=== PATIENT | female | born 1940 | race Caucasian/White ===

== ENCOUNTER 2018-06-30 23:55 | Inpatient (IN) | payer MEDICARE ==
[2018-07-01 00:50] LABS: Bilirubin Negative (Negative); Blood, Urine Negative (Negative); Clarity TURBID (Clear); Glucose, Urine (Dipstick) 250 mg/dL (Negative); Leukocyte Small (Negative); Nitrite Negative (Negative); Protein, Urine (Dipstick) 300 mg/dL (Neg-Trace); Specific Gravity, Urine 1.014 (1.002-1.036); Urobilinogen 0.2 mg/dL (0.2-1.0); pH, Urine 5.5 (5.0-9.0)
[2018-07-01 00:52] LABS: Bacteria/HPF 4+ HPF (None Seen); Pathc Cast-AUWi Flag 1.06 (0-2.49); RBC/HPF 0-3 HPF (0-3)
[2018-07-01 00:55] LABS: Hyaline Casts/LPF 0-3 HYALINE CAST LPF (0-3 Hyaline); Oval Fat Bodies/HPF None Seen HPF (None Seen); Sperm/HPF None Seen HPF (None Seen); Transitional Epithelial NONE SEEN HPF (0-3); Trichomonas/HPF None Seen HPF (None Seen); Yeast-All Forms None Seen HPF (None Seen)
[2018-07-01 00:59] LABS: Band 5 % (5-11); Eosinophils 3 % (0-10); Hemoglobin 10.9 g/dL (12.0-16.0); Lymphocytes 14 % (21-51); MDiff Complete? YES; Mean Corpuscular HGB CONC 33.1 g/dL (32.0-36.0); Mean Corpuscular Hemoglobin 28.3 pg (27.0-31.0); Mean Corpuscular Volume 85.4 fL (78.0-98.0); Mean Platelet Volume 6.6 fL (7.4-10.4); Monocytes 7 % (0-10); Neutrophil 71 % (42-75); PLT Morphology Comment Appears Increased; Platelet Count 441 thou/uL (130-400); RBC Distribution Width 12.5 % (11.5-14.5); Red Blood Cell (RBC) Count 3.85 mill/uL (4.20-5.40); White Blood Cell (WBC) Count 22.4 thou/uL (4.8-10.8)
[2018-07-01] MEDS ORDERED: cefTRIAXone\\ROCEPHIN 1 GM VIAL ONE (01:01)
[2018-07-01 01:03] LABS: ALT (SGPT) 29 U/L (8-55); AST (SGOT) 25 U/L (5-34); Albumin 3.1 g/dL (3.4-4.8); Alkaline Phosphatase 105 U/L (40-150); Anion Gap 13 mmol/L (10-20); BUN (Urea Nitrogen) 18 mg/dL (9.8-20.1); Bilirubin, Total 0.6 mg/dL (0.2-1.2); CK (CPK) 67 U/L (29-168); Calc. Creatinine Clearance 0 mL/min (70-130); Calcium 9.4 mg/dL (7.8-10.44); Carbon Dioxide 24 mmol/L (23-31); Chloride 91 mmol/L (98-107); Estimated GFR-MDRD 51; Globulin 4.3 g/dL (2.4-3.5); Glucose 164 mg/dL (83-110); Potassium 4.5 mmol/L (3.5-5.1); Protein, Total 7.4 g/dL (6.0-8.3); Sodium 123 mmol/L (136-145)
[2018-07-01 01:11] LABS: CKMB 2.2 ng/mL (0-6.6); Troponin I Less than 0.010 ng/mL (< 0.028)
[2018-07-01] MEDS ORDERED: Nitrofurantoin Monohyd/M-Cryst 100 MG CAP PO SCH (01:15)
[2018-07-01 03:10] VITALS: BMI 25.4
--- NOTE | 2018-07-01 08:09 | CT ---
PRELIMINARY REPORT/[facility]/EMERGENTY AFTER-HOURS PROCEDURE CT Head Without Intravenous Contrast EXAM DATE/TIME: 07/01/2018 12:39 AM CLINICAL HISTORY: 77 years old, female; Signs and symptoms; Altered mental status/memory loss; Patient HX: Patient pres ents for evaluation of confusion, patient presents for evaluation of mental status changes TECHNIQUE: Axial computed tomography images of the head/brain without intravenous contrast. COMPARISON: No relevant prior studies available. FINDINGS: Brain: Volume loss and chronic small vessel ischemic change. Mild multifocal encephalomalacia. 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 No brain edema. No intracranial hemorrhage. Ventricles: Normal. No ventriculomegaly. Bones/joints: Normal. No acute fracture. Sinuses: Mucosal thickening and fluid level in the left maxillary sinus are suspicious for sinusitis. Mastoid air cells: Normal as visualized. No mastoid effusion. Soft tissues: Normal. IMPRESSION: 1. Mucosal thickening and fluid level in the left maxillary sinus are suspicious for sinusitis. 2. No acute brain findings. Thank you for allowing us to participate in the care of your patient. Dictated and Authenticated by: Dat Garcia MD 07/01/2018 12:47 AM Central Time ([place] & [place]) FINAL REPORT HEAD CT WITHOUT CONTRAST: HISTORY: Altered mental status. COMPARISON: None. FINDINGS: This report is in agreement with the preliminary report by [facility]. No acute intracranial process. Ther e is hypoattenuation involving the left and right frontal subcortical white matter which is nonspecif ic. Components of associated malacic change are noted. There is malacia in the left subinsular whit e matter. POS: [facility]
--- NOTE | 2018-07-01 08:21 | RAD ---
ONE VIEW PELVIS: HISTORY: Fall. Trauma. Pain. FINDINGS: There is a stent projecting over the aortic bifurcation and right iliac artery. Sacral alae are pres erved. Bony pelvis is intact. Symmetric SI joints and hip joints. Unremarkable single view of the pelvis on this pelvic radiograph. IMPRESSION: No posttraumatic change. POS: [facility]
--- NOTE | 2018-07-01 08:24 | RAD ---
LEFT HIP 2 VIEWS: Date: 07/01/18 HISTORY: Trauma. Pain. FINDINGS: Moderate loss of joint space height. Contour of the femoral head is maintained. No fracture. Vascular calcifications are identified. IMPRESSION: No post-traumatic change. POS: [facility]
[2018-07-01] MEDS ORDERED: Insulin Regular 300 UNITS/3 ML VIAL SC PRN (09:54)
[2018-07-01] MEDS ORDERED: Dextrose 5% in Water 1,000 ML IV PRN (09:54)
[2018-07-01] MEDS ORDERED: Dextrose 50% Abboject 50 ML SYRINGE SLOW IVP PRN (09:54)
[2018-07-01] MEDS: Sodium Chloride 0.9% 1,000 ML IV SCH ×2 (11:03→23:48)
[2018-07-01 11:13] LABS: #Eosinphils 0.1 thou/uL (0.0-0.7); #Lymphocytes 1.3 thou/uL (1.20-3.40); #Monocytes 1.2 thou/uL (0.11-0.59); #Neutrophils 14.6 thou/uL (1.40-6.50); %Basophils 0.1 % (0.0-1.0); %Eosinophils 0.3 % (0.0-10.0); %Lymphocytes 7.7 % (21.0-51.0); %Monocytes 7.2 % (0.0-10.0); %Neutrophils 84.7 % (42.0-75.0); Mean Corpuscular HGB CONC 32.1 g/dL (32.0-36.0); Mean Corpuscular Hemoglobin 28.6 pg (27.0-31.0); Mean Corpuscular Volume 89.1 fL (78.0-98.0); Mean Platelet Volume 6.7 fL (7.4-10.4); Platelet Count 371 thou/uL (130-400); RBC Distribution Width 12.5 % (11.5-14.5); Red Blood Cell (RBC) Count 3.85 mill/uL (4.20-5.40); White Blood Cell (WBC) Count 17.2 thou/uL (4.8-10.8)
[2018-07-01 11:36] LABS: ALT (SGPT) 33 U/L (8-55); AST (SGOT) 38 U/L (5-34); Albumin 2.9 g/dL (3.4-4.8); Alkaline Phosphatase 123 U/L (40-150); Anion Gap 14 mmol/L (10-20); BUN (Urea Nitrogen) 16 mg/dL (9.8-20.1); Bilirubin, Total 0.5 mg/dL (0.2-1.2); Calc. Creatinine Clearance 54 mL/min (70-130); Calcium 8.5 mg/dL (7.8-10.44); Carbon Dioxide 21 mmol/L (23-31); Chloride 96 mmol/L (98-107); Estimated GFR-MDRD 63; Globulin 3.2 g/dL (2.4-3.5); Glucose 243 mg/dL (83-110); Magnesium 1.5 mg/dL (1.6-2.6); Potassium 4.5 mmol/L (3.5-5.1); Protein, Total 6.1 g/dL (6.0-8.3); Sodium 126 mmol/L (136-145)
[2018-07-01 11:53] LABS: Thyroid Stimulating Hormone 4.3079 uIU/mL (0.35-4.94)
[2018-07-01] MEDS ORDERED: Ondansetron PF 4 MG/2 ML Vial IVP PRN (12:09)
[2018-07-01] MEDS ORDERED: Ondansetron ODT 4 MG TAB PO PRN (12:09)
[2018-07-01] MEDS ORDERED: Calcium Carbonate 500 MG ChewTAB PO PRN (12:09)
[2018-07-01] MEDS ORDERED: Insulin Glargine 20 UNITS in Pre-Filled Syringe 1 EACH SC SCH (12:15)
[2018-07-01] MEDS ORDERED: Magnesium 2 GM/50 ML 2 GM in Premix Bag 1 BAG IVPB SCH (12:15)
[2018-07-01] MEDS ORDERED: Propranolol HCl 20 MG TAB PO SCH (12:15)
--- NOTE | 2018-07-01 12:19 | HP ---
DATE OF ADMISSION: 07/01/2018 This is a leftover admit from last night. CHIEF COMPLAINT: Altered mentation. HISTORY OF PRESENT ILLNESS: The patient is a 77-year-old female currently residing at [facility], presented to the emergency room by EMS with altered mentation. Over the last 48 hours, lilly cota has been confused. She also had low grade fever. She has not been eating and drinking well. Over the last few weeks, the patient has been sleeping. Patient has been somnolent most of the time . No chest pain, shortness of breath, palpitations reported. At the time of my evaluation, patient denies any new complaints. Her mentation is somewhat improved. The daughter is at the bedside. No notable vision, blurring of vision, facial asymmetry reported. The patient had a fall 2 days ago without significant injuries. She underwent a hip and pelvis x-ra y done in the emergency room that was negative for acute fractures. CT scan of the brain done in the emergency room was negative for acute findings. Sodium in the emergency room was 123 with urinalysi s showing 7-10 wbc's and 4+ bacteria. She received nitrofurantoin, ceftriaxone and IV fluids in the emergency room. PAST MEDICAL HISTORY: 1. Coronary artery disease. 2. Chronic pain syndrome. 3. Diabetes mellitus type 2. 4. Seizure disorder. 5. Hypertension. 6. Hyperlipidemia. 7. Urinary incontinence. 8. Gastroesophageal reflux disease. 9. Blepharospasm. 10. Left ankle fracture in April, conservatively managed. PAST SURGICAL HISTORY: 1. Appendectomy, hernia surgery. 2. Rectocele repair. 3. Bladder neck suspension. 4. Cataract in her right eye. 5. Lumbar surgery. ALLERGIES: No known drug allergies. CURRENT HOME MEDICATIONS: According to the list sent from [facility]; aspirin 81 mg daily, Lipitor 4 0 mg daily, citalopram 10 mg daily, Plavix 75 mg daily, dexamethasone TobraDex eyedrops daily, flutic asone nasal spray daily, Humalog sliding scale, irbesartan 300 mg daily, Lasix 40 mg daily, Levemir 4 8 units daily, levothyroxine 125 mcg daily, MiraLax as needed, loratadine 10 mg daily, Neurontin 900 mg at bedtime, potassium chloride 40 mEq twice a day, propranolol 20 mg daily and vitamin D3 5000 uni ts daily. SOCIAL HISTORY: Patient currently lives at [facility]. She is under the care of Dr. Rox howell. She is FULL CODE, makes her own decision with the help of her family. No alcohol, tobacco o r drug use reported. FAMILY HISTORY: Heart disease runs among her family. REVIEW OF SYSTEMS: The following complete review of systems was negative, unless otherwise mentioned in the HPI or below: Constitutional: Weight loss or gain, ability to conduct usual activities. Skin: Rash, itching. Eyes: Double vision, pain. ENT/Mouth: Nose bleeding, neck stiffness, pain, tenderness. Cardiovascular: Palpitations, dyspnea on exertion, orthopnea. Respiratory: Shortness of breath, wheezing, cough, hemoptysis, fever or night sweats. Gastrointestinal: Poor appetite, abdominal pain, heartburn, nausea, vomiting, constipation, or diarr hea. Genitourinary: Urgency, frequency, dysuria, nocturia. Musculoskeletal: Pain, swelling. Neurologic/Psychiatric: Anxiety, depression. Allergy/Immunologic: Skin rash, bleeding tendency. PHYSICAL EXAMINATION: VITAL SIGNS: In the emergency room, temperature 98.8, respirations 17, pulse rate of 66, blood press ure 154/64 with O2 saturation 95% on room air. GENERAL: A 77-year-old female in no apparent distress. Mentation slightly improved. HEENT: Head is atraumatic, normocephalic. Sclerae are anicteric. Dry mucous membrane, no oral lesi on. NECK: Supple, no JVD appreciated. No carotid bruit. LUNGS: Clear to auscultation bilaterally, no wheezing, rales or rhonchi. HEART: S1 and S2 present. Regular rate and rhythm. No rubs or gallops appreciated. ABDOMEN: Soft, nontender, bowel sounds present. EXTREMITIES: No edema or calf tenderness. NEUROLOGIC: Grossly nonfocal, moves all four extremities. PSYCHIATRY: Alert, awake, oriented x3. SKIN: Warm and dry. LYMPH NODES: No palpable lymph nodes in the neck. PERIPHERAL VASCULAR: Radial pulses palpable bilaterally. MUSCULOSKELETAL: No joint swelling or tenderness. LABORATORY DATA AND IMAGING DATA: Sodium 123 with lactic acid 1.1, magnesium 1.5. Repeat sodium thi s morning was 126, albumin 3.1. Urinalysis as discussed above. WBC 22.[address] scan of the brain by my review as discussed above. EKG by my review showed sinus rhythm with left axis d eviation and LVH. IMPRESSION: 1. Toxic metabolic encephalopathy, multifactorial. 2. Hypotonic hyponatremia. 3. Sepsis secondary to urinary tract infection. 4. Hypomagnesemia. 5. Mild protein calorie malnutrition. 6. Hypothyroidism. 7. Coronary artery disease on aspirin and Plavix. 8. Essential tremors, followed by Dr. Villalta. 9. Diabetes mellitus type 2. 10. History of seizures. 11. Hypertension. 12. Hyperlipidemia. 13. Chronic pain syndrome. 14. Gastroesophageal reflux disease. 15. Urinary incontinence. PLAN: The patient will be monitored on the medical floor. Most likely etiology for hyponatremia gustavo ears to be dehydration. She is also on Lasix. We can hold diuretics for now. Continue empiric anti biotics. We will get renal ultrasound. Urine cultures have been sent and pending at this time. We will consult Nephrology. Plan of care was discussed with the patient and the family in detail. They stated understanding.
[2018-07-01] MEDS: traMADol HCl 50 MG TAB PO PRN (12:37)
--- NOTE | 2018-07-01 16:40 | ULT ---
ULTRASOUND RETROPERITONEUM COMPLETE: (RENAL) 07/01/18 HISTORY: 77-year-old female with urinary tract infection. Rule out obstructive uropathy. FINDINGS: There is mild dilation of the right renal pelvis and all of the right calyces. This persists after vo iding. There is no dilation of the left renal collecting system. There is a 1.5 cm round parenchymal cyst at the lower pole of the left kidney. The right kidney measures 11.5 x 6 x 6.5 cm. The left kidney measures 10.5 x 4.5 x 6 cm. Bilateral renal parenchymal thickness and parenchymal echogenicity, are normal. Prevoid urinary bladder volume is 215 mL. Postvoid bladder volume is 165 mL. Bilateral ureteral jets are demonstrated in the bladder by color d oppler. IMPRESSION: 1. Mild right hydronephrosis. 2. Poor micturition, with significant postvoid residua. MONISHA Lawler POS: [facility]
[2018-07-01 19:32] LABS: Potassium 4.9 mmol/L (3.5-5.1)
[2018-07-01 19:42] LABS: Sodium 121 mmol/L (136-145)
[2018-07-01] MEDS: Amlodipine 5 MG TAB PO SCH (20:07)
[2018-07-01] MEDS: cefTRIAXone\\ROCEPHIN 1 GM in Sodium Chloride 0.9% 100 ML IVPB SCH (20:08)
[2018-07-01] MEDS: Famotidine 20 MG TAB PO SCH (20:10)
[2018-07-01] MEDS: Gabapentin 300 MG CAP PO SCH (20:10)
[2018-07-01] MEDS: Acetaminophen 325 MG TAB PO PRN (20:11)
[2018-07-01] MEDS: Heparin 5,000 UNITS/ML VIAL SC SCH (20:11)
[2018-07-01] MEDS: Insulin Regular 300 UNITS/3 ML VIAL SC PRN (20:12)
[2018-07-02 04:39] LABS: #Eosinphils 0.2 thou/uL (0.0-0.7); #Lymphocytes 2.1 thou/uL (1.20-3.40); #Monocytes 1.5 thou/uL (0.11-0.59); #Neutrophils 14.7 thou/uL (1.40-6.50); %Basophils 0.1 % (0.0-1.0); %Eosinophils 0.9 % (0.0-10.0); %Lymphocytes 11.3 % (21.0-51.0); %Monocytes 8.3 % (0.0-10.0); %Neutrophils 79.3 % (42.0-75.0); Hemoglobin 11.6 g/dL (12.0-16.0); Mean Corpuscular HGB CONC 31.4 g/dL (32.0-36.0); Mean Corpuscular Hemoglobin 27.1 pg (27.0-31.0); Mean Corpuscular Volume 86.2 fL (78.0-98.0); Mean Platelet Volume 7.5 fL (7.4-10.4); Platelet Count 373 thou/uL (130-400); RBC Distribution Width 12.5 % (11.5-14.5); Red Blood Cell (RBC) Count 4.29 mill/uL (4.20-5.40); White Blood Cell (WBC) Count 18.5 thou/uL (4.8-10.8)
[2018-07-02 04:59] LABS: Anion Gap 10 mmol/L (10-20); BUN (Urea Nitrogen) 14 mg/dL (9.8-20.1); Calc. Creatinine Clearance 62 mL/min (70-130); Calcium 9.2 mg/dL (7.8-10.44); Carbon Dioxide 24 mmol/L (23-31); Chloride 96 mmol/L (98-107); Estimated GFR-MDRD 73; Glucose 110 mg/dL (83-110); Magnesium 1.9 mg/dL (1.6-2.6); Phosphorus 2.6 mg/dL (2.3-4.7); Potassium 3.7 mmol/L (3.5-5.1); Sodium 126 mmol/L (136-145)
[2018-07-02] MEDS: Levothyroxine Sodium 125 MCG TAB PO SCH (05:26)
[2018-07-02] MEDS: traMADol HCl 50 MG TAB PO PRN (07:54)
[2018-07-02] MEDS: Amlodipine 5 MG TAB PO SCH ×2 (07:55→20:13)
[2018-07-02] MEDS: Heparin 5,000 UNITS/ML VIAL SC SCH ×2 (07:55→20:13)
[2018-07-02] MEDS: Famotidine 20 MG TAB PO SCH ×2 (07:56→20:13)
[2018-07-02] MEDS: Atorvastatin Calcium 40 MG TAB PO SCH (07:56)
[2018-07-02] MEDS: Aspirin 81 mg Enteric Coated Tablet PO SCH (07:57)
[2018-07-02] MEDS: Clopidogrel Bisulfate 75 MG TAB PO SCH (07:57)
[2018-07-02] MEDS: Tobramycin/Dexamethasone Ophth Oint 3.5 GM TUBE EA EYE SCH (07:58)
[2018-07-02] MEDS ORDERED: Prevnar 13-Val Conj/PF 0.5 ML SYRINGE IM ONE (09:00)
[2018-07-02] MEDS ORDERED: Propranolol HCl 20 MG TAB PO SCH (09:00)
[2018-07-02] MEDS ORDERED: Citalopram 10 MG TAB PO SCH (09:00)
[2018-07-02] MEDS: Insulin Glargine 30 UNITS in Pre-Filled Syringe 1 EACH SC SCH (09:13)
--- NOTE | 2018-07-02 10:18 | PRG ---
DATE OF SERVICE: 07/02/2018 SUBJECTIVE: Patient was seen and examined at bedside and overnight events noted. Patient denies any shortness of breath or chest pain or palpitation. No history of nausea or vomiting or diarrhea or f ever or chills or cramps. OBJECTIVE: GENERAL: This is an elderly female in no apparent distress. VITAL SIGNS: Temperature 98.5, pulse 79, respiratory rate 18, blood pressure 186/64. HEENT: Atraumatic, normocephalic. Oral mucosa is moist. NECK: Supple. CARDIOVASCULAR: S1, S2 heard. Rate and rhythm regular. RESPIRATORY: Clear to auscultation. GASTROINTESTINAL: Abdomen is soft. MUSCULOSKELETAL: No tenderness. No edema. DERMATOLOGIC: No skin rash. NEUROLOGIC: Alert and awake and oriented x3. No focal neurologic deficits. Moving all the extremiti es. PSYCHIATRIC: Mood and affect normal. LABORATORY DATA: Sodium is 126, potassium is 3.7, BUN 14, creatinine 0.7. ASSESSMENT AND PLAN: 1. Hyponatremia, multifactorial. Agree with intravenous fluids for now. We will hold the citalopra m and will monitor. We will recheck sodium in the evening. 2. We will check urine studies. 3. Edema, controlled. 4. Hypertension. Titrate medication. 5. Anemia, mild. 6. Chronic kidney disease, stage 2. 7. We will monitor sodium closely.
[2018-07-02] MEDS ORDERED: Sodium Chloride 0.9% 1,000 ML IV SCH (12:01)
[2018-07-02] MEDS: Insulin Regular 300 UNITS/3 ML VIAL SC PRN ×2 (12:10→22:17)
[2018-07-02] MEDS: Labetalol HCl 100 MG/20 ML VIAL SLOW IVP PRN (12:19)
[2018-07-02 16:15] LABS: Potassium 3.8 mmol/L (3.5-5.1)
[2018-07-02] MEDS ORDERED: Tolvaptan 15 MG TAB PO SCH (17:15)
--- NOTE | 2018-07-02 20:01 | PDOC.PN ---
- Subjective Encounter Start Date: 07/02/18 Encounter Start Time: 13:00 Patient seen and examined for Encephalopathy/UTI. Feels better. Mental status improving. No new complaints. No overnight events - Objective Resuscitation Status: Resuscitation Status FULL:Full Resuscitation MAR Reviewed: Yes Vital Signs & Weight: Vital Signs (12 hours) Temp Pulse Resp BP BP Pulse Ox 07/02/18 15:49 165/71 H 07/02/18 15:10 97.6 F 72 18 179/72 H 94 L 07/02/18 12:19 75 190/73 H 07/02/18 11:32 98.8 F 75 18 180/63 H 94 L Weight Weight 143 lb 4.8 oz I&O: 07/01/18 07/02/18 07/03/18 06:59 06:59 06:59 Intake Total 915 Output Total 1800 620 Balance -885 -620 Result Diagrams: 07/02/18 03:27 07/02/18 15:53 Additional Labs: Accuchecks 07/02/18 07/02/18 07/02/18 15:16 11:35 04:32 POC Glucose 138 H 194 H 118 H 07/01/18 20:07 POC Glucose 269 H Radiology Reviewed by me: No (Renal USF - reviewed) Phys Exam - Physical Examination Constitutional: NAD Respiratory: no wheezing, no rhonchi Symmetrical, No rales Cardiovascular: RRR, no rub no heaves/pulsations Gastrointestinal: soft, non-tender, positive bowel sounds Musculoskeletal: no edema, pulses present Neurological: non-focal, normal sensation, moves all 4 limbs Psychiatric: normal affect, A&O x 3 Dx/Plan - Plan plan discussed w/ family, PT/OT, DVT proph w/heparin, DVT proph w/SCDs IMPRESSION: 1. Toxic metabolic encephalopathy, multifactorial. improving 2. Hypotonic hyponatremia. multifactorial 3. Sepsis secondary to urinary tract infection. 4. Hypomagnesemia. 5. Mild protein calorie malnutrition. 6. Hypothyroidism. 7. Coronary artery disease on aspirin and Plavix. 8. Essential tremors, followed by Dr. Villalta. 9. Diabetes mellitus type 2. 10. History of seizures. 11. Hypertension. 12. Hyperlipidemia. 13. Chronic pain syndrome. 14. Gastroesophageal reflux disease. 15. Urinary incontinence. PLAN: Cont IV Atbx Change IVF to 50 ml/hr AM labs Await urine cultures Repeat electrolytes later today Cont other meds as below Inpt Rehab nathaniel family req DC Ring Urine cath if PVR >300 Microbiology 07/01/18 00:15 Urine Straight Catheter Urine Culture - Preliminary Alpha-Hemolytic Streptococcus Review of Systems - Review of Systems Respiratory: negative: Cough, Dry, Shortness of Breath, Hemoptysis, SOB with Excertion, Pleuritic Pain, Sputum, Wheezing Cardiovascular: negative: chest pain, palpitations, orthopnea, paroxysmal nocturnal dyspnea, edema, light headedness, other - Medications/Allergies Allergies/Adverse Reactions: Allergies Allergy/AdvReac Type Severity Reaction Status Date / Time No Known Drug Allergies Allergy Verified 07/01/18 03:17 Medications: Current Medications Acetaminophen (Tylenol) 650 mg PO Q4H PRN PRN Reason: Headache/Fever/Mild Pain (1-3) Last Admin: 07/01/18 20:11 Dose: 650 mg Amlodipine Besylate (Norvasc) 5 mg PO BID [facility] Last Admin: 07/02/18 07:55 Dose: 5 mg Aspirin (Ecotrin) 81 mg PO DAILY [facility] Last Admin: 07/02/18 07:57 Dose: 81 mg Atorvastatin Calcium (Lipitor) 40 mg PO DAILY [facility] Last Admin: 07/02/18 07:56 Dose: 40 mg Calcium Carbonate (Tums) 1,000 mg PO Q4H PRN PRN Reason: Heartburn or Indigestion Clopidogrel Bisulfate (Plavix) 75 mg PO DAILY [facility] Last Admin: 07/02/18 07:57 Dose: 75 mg Dextrose/Water (Dextrose 50%) 25 gm SLOW IVP PRN PRN PRN Reason: Hypoglycemia Famotidine (Pepcid) 20 mg PO BID [facility] Last Admin: 07/02/18 07:56 Dose: 20 mg Gabapentin (Neurontin) 300 mg PO HS [facility] Last Admin: 07/01/18 20:10 Dose: 300 mg Glucagon (Glucagon) 1 mg IM PRN PRN PRN Reason: Hypoglycemia Heparin Sodium (Porcine) (Heparin) 5,000 units SC BID [facility] Last Admin: 07/02/18 07:55 Dose: 5,000 units Dextrose/Water (D5w) 1,000 mls @ 0 mls/hr IV .Q0M PRN PRN Reason: Hypoglycemia Insulin Glargine 30 units/ (Miscellaneous Medication) 0.3 mls @ 0 mls/hr SC QAM [facility] Last Admin: 07/02/18 09:13 Dose: 0.3 mls Ceftriaxone Sodium 1 gm/ (Sodium Chloride) 100 mls @ 200 mls/hr IVPB 2100 [facility] Last Admin: 07/01/18 20:08 Dose: 100 mls Insulin Human Regular (Humulin R) 0 units SC .BEDTIME SLIDING SC PRN PRN Reason: Bedtime Correctional Scale Last Admin: 07/01/18 20:12 Dose: 3 unit Insulin Human Regular (Humulin R) 0 units SC .MODERATE SLIDING SC PRN PRN Reason: Moderate Correctional Scale Last Admin: 07/02/18 12:10 Dose: 2 unit Irbesartan (Avapro) 300 mg PO DAILY [facility] Last Admin: 07/02/18 09:12 Dose: 300 mg Labetalol HCl (Normodyne) 10 mg SLOW IVP Q4H PRN PRN Reason: Systolic BP > 180 Last Admin: 07/02/18 12:19 Dose: 10 ml Levothyroxine Sodium (Synthroid) 125 mcg PO 0600 [facility] Last Admin: 07/02/18 05:26 Dose: 125 mcg Ondansetron HCl (Zofran Odt) 4 mg PO Q6H PRN PRN Reason: Nausea/Vomiting Ondansetron HCl (Zofran) 4 mg IVP Q6H PRN PRN Reason: Nausea/Vomiting Last Admin: 07/02/18 07:42 Dose: 4 mg Propranolol HCl (Inderal) 20 mg PO BID [facility] Sodium Chloride (Flush - Normal Saline) 10 ml IVF Q12HR [facility] Last Admin: 07/02/18 08:04 Dose: Not Given Sodium Chloride (Flush - Normal Saline) 10 ml IVF PRN PRN PRN Reason: Saline Flush Tobramycin/Dexamethasone (Tobradex Ophth Oint Ointment) 0 gm EA EYE DAILY [facility] Last Admin: 07/02/18 07:58 Dose: 1 drop Tramadol HCl (Ultram) 50 mg PO Q4H PRN PRN Reason: Moderate Pain (4-6) Last Admin: 07/02/18 07:54 Dose: 50 mg
[2018-07-02] MEDS: cefTRIAXone\\ROCEPHIN 1 GM in Sodium Chloride 0.9% 100 ML IVPB SCH (20:12)
[2018-07-02] MEDS: Gabapentin 300 MG CAP PO SCH (20:13)
[2018-07-02] MEDS: Propranolol HCl 20 MG TAB PO SCH (20:13)
[2018-07-02] MEDS: Acetaminophen 325 MG TAB PO PRN (20:22)
[2018-07-03 04:29] LABS: Anion Gap 11 mmol/L (10-20); BUN (Urea Nitrogen) 11 mg/dL (9.8-20.1); Calc. Creatinine Clearance 65 mL/min (70-130); Calcium 9.6 mg/dL (7.8-10.44); Carbon Dioxide 25 mmol/L (23-31); Chloride 102 mmol/L (98-107); Estimated GFR-MDRD 78; Glucose 80 mg/dL (83-110); Potassium 3.9 mmol/L (3.5-5.1); Sodium 134 mmol/L (136-145)
[2018-07-03] MEDS: Levothyroxine Sodium 125 MCG TAB PO SCH (05:52)
[2018-07-03] MEDS: Labetalol HCl 100 MG/20 ML VIAL SLOW IVP PRN ×2 (06:08→17:43)
[2018-07-03] MEDS: Insulin Glargine 30 UNITS in Pre-Filled Syringe 1 EACH SC SCH (08:31)
[2018-07-03] MEDS: Clopidogrel Bisulfate 75 MG TAB PO SCH (08:31)
[2018-07-03] MEDS: Atorvastatin Calcium 40 MG TAB PO SCH (08:32)
[2018-07-03] MEDS: Amlodipine 5 MG TAB PO SCH ×2 (08:32→20:02)
[2018-07-03] MEDS: Aspirin 81 mg Enteric Coated Tablet PO SCH (08:32)
[2018-07-03] MEDS: Propranolol HCl 20 MG TAB PO SCH ×3 (08:32→20:02)
[2018-07-03] MEDS: Heparin 5,000 UNITS/ML VIAL SC SCH ×2 (08:32→20:01)
[2018-07-03] MEDS: Tobramycin/Dexamethasone Ophth Oint 3.5 GM TUBE EA EYE SCH (08:33)
[2018-07-03] MEDS: Famotidine 20 MG TAB PO SCH ×2 (08:33→20:02)
[2018-07-03] MEDS ORDERED: hydrALAZINE 20 MG/ML VIAL SLOW IVP PRN (10:36)
--- NOTE | 2018-07-03 14:35 | PRG ---
DATE OF SERVICE: 07/03/2018 SUBJECTIVE: Patient was seen and examined at bedside and overnight events noted. Patient denies any shortness of breath or chest pain or palpitation. No history of nausea or vomitin g or diarrhea or fever or chills or cramps. OBJECTIVE: GENERAL: This is an elderly female in no apparent distress. VITAL SIGNS: Temperature 99, pulse 74, respiratory rate 18, blood pressure 177/72. HEENT: Atraumatic, normocephalic. Oral mucosa is moist. NECK: Supple. CARDIOVASCULAR: S1 and S2 heard. Rate and rhythm regular. RESPIRATORY: Clear to auscultation. GASTROINTESTINAL: Abdomen is soft. MUSCULOSKELETAL: No tenderness. No edema. DERMATOLOGIC: No skin rash. NEUROLOGIC: Alert and awake and oriented x3. No focal neurologic deficits. Moving all the extremit ies. PSYCHIATRIC: Mood and affect normal. LABORATORY DATA: Sodium is 134, potassium 3.9, creatinine is 0.7. ASSESSMENT AND PLAN: 1. Hyponatremia, multifactorial, better with tolvaptan. Continue on fluid restriction for now. Lizy exa stopped. Cautious use of antidepressants 2. Edema, controlled. 3. Hypertension. Continue titration of medication and pain control. Patient is having pain. 4. Anemia. 5. Chronic kidney disease, stage 2, stable. Sodium level is better. Continue fluid restriction as tolerated.
[2018-07-03] MEDS: Acetaminophen 325 MG TAB PO SCH ×2 (16:15→20:07)
[2018-07-03] MEDS: Insulin Regular 300 UNITS/3 ML VIAL SC PRN ×2 (17:45→21:10)
--- NOTE | 2018-07-03 19:45 | PDOC.PN ---
- Subjective Encounter Start Date: 07/03/18 Encounter Start Time: 10:30 Patient seen and examined for encephalopathy/UTI/Hyponatremia. Intermittent confusion per son at bedside. No new complaints. No overnight events - Objective Resuscitation Status: Resuscitation Status FULL:Full Resuscitation MAR Reviewed: Yes Vital Signs & Weight: Vital Signs (12 hours) Temp Pulse Resp BP BP Pulse Ox 07/03/18 19:27 98.5 F 68 20 180/72 H 97 07/03/18 19:22 98.7 F 75 18 189/75 H 97 07/03/18 18:37 173/63 H 07/03/18 17:43 70 180/69 H 07/03/18 16:00 98.3 F 70 18 184/70 H 96 07/03/18 11:00 98.9 F 74 18 177/72 H 95 07/03/18 08:32 81 185/74 H 07/03/18 08:00 98.6 F 81 18 185/74 H 96 Weight Weight 143 lb 4.8 oz I&O: 07/02/18 07/03/18 07/04/18 06:59 06:59 06:59 Intake Total 915 600 Output Total 1800 620 Balance -885 -20 Result Diagrams: 07/02/18 03:27 07/03/18 03:27 Additional Labs: Accuchecks 07/03/18 07/03/18 07/03/18 17:12 11:53 09:21 POC Glucose 219 H 161 H 148 H 07/03/18 07/02/18 04:51 20:47 POC Glucose 100 259 H Phys Exam - Physical Examination Constitutional: NAD Respiratory: no wheezing, no rhonchi Cardiovascular: RRR, no rub Gastrointestinal: soft, non-tender, positive bowel sounds Musculoskeletal: no edema Dx/Plan - Plan DVT proph w/SCDs IMPRESSION: 1. Toxic metabolic encephalopathy, multifactorial. 2. Hypotonic hyponatremia. multifactorial - improved after [place] 3. Sepsis secondary to urinary tract infection. 4. Hypomagnesemia. 5. Mild protein calorie malnutrition. 6. Hypothyroidism. 7. Coronary artery disease on aspirin and Plavix. 8. Essential tremors, followed by Dr. Villalta. 9. Diabetes mellitus type 2. 10. History of seizures. 11. Hypertension. 12. Hyperlipidemia. 13. Chronic pain syndrome. 14. Gastroesophageal reflux disease. 15. Urinary incontinence. PLAN: Cont IV Ceftriaxone IVF dced AM labs Await urine cultures/sends Cont other meds as below Inpt Rehab eval pending Cont sliding scale Urine cath PRN for PVR >300 Increase Lantus to 35 units QAM Microbiology 07/01/18 00:15 Urine Straight Catheter Urine Culture - Preliminary Alpha-Hemolytic Streptococcus Review of Systems - Review of Systems Respiratory: negative: Cough, Dry, Shortness of Breath, Hemoptysis, SOB with Excertion, Pleuritic Pain, Sputum, Wheezing Cardiovascular: negative: chest pain, palpitations, orthopnea, paroxysmal nocturnal dyspnea, edema, light headedness, other - Medications/Allergies Allergies/Adverse Reactions: Allergies Allergy/AdvReac Type Severity Reaction Status Date / Time No Known Drug Allergies Allergy Verified 07/01/18 03:17 Medications: Current Medications Acetaminophen (Tylenol) 650 mg PO Q4H PRN PRN Reason: Headache/Fever/Mild Pain (1-3) Last Admin: 07/02/18 20:22 Dose: 650 mg Acetaminophen (Tylenol) 650 mg PO TID [facility] Last Admin: 07/03/18 16:15 Dose: 650 mg Amlodipine Besylate (Norvasc) 5 mg PO BID [facility] Last Admin: 07/03/18 08:32 Dose: 5 mg Aspirin (Ecotrin) 81 mg PO DAILY [facility] Last Admin: 07/03/18 08:32 Dose: 81 mg Atorvastatin Calcium (Lipitor) 40 mg PO DAILY [facility] Last Admin: 07/03/18 08:32 Dose: 40 mg Calcium Carbonate (Tums) 1,000 mg PO Q4H PRN PRN Reason: Heartburn or Indigestion Clopidogrel Bisulfate (Plavix) 75 mg PO DAILY [facility] Last Admin: 07/03/18 08:31 Dose: 75 mg Dextrose/Water (Dextrose 50%) 25 gm SLOW IVP PRN PRN PRN Reason: Hypoglycemia Famotidine (Pepcid) 20 mg PO BID [facility] Last Admin: 07/03/18 08:33 Dose: 20 mg Gabapentin (Neurontin) 300 mg PO HS [facility] Last Admin: 07/02/18 20:13 Dose: 300 mg Glucagon (Glucagon) 1 mg IM PRN PRN PRN Reason: Hypoglycemia Heparin Sodium (Porcine) (Heparin) 5,000 units SC BID [facility] Last Admin: 07/03/18 08:32 Dose: 5,000 units Hydralazine HCl (Apresoline) 10 mg SLOW IVP Q4H PRN PRN Reason: SBP Greater Than 180 Dextrose/Water (D5w) 1,000 mls @ 0 mls/hr IV .Q0M PRN PRN Reason: Hypoglycemia Insulin Glargine 30 units/ (Miscellaneous Medication) 0.3 mls @ 0 mls/hr SC QAM [facility] Last Admin: 07/03/18 08:31 Dose: 0.3 mls Ceftriaxone Sodium 1 gm/ (Sodium Chloride) 100 mls @ 200 mls/hr IVPB 2100 [facility] Last Admin: 07/02/18 20:12 Dose: 100 mls Insulin Human Regular (Humulin R) 0 units SC .BEDTIME SLIDING SC PRN PRN Reason: Bedtime Correctional Scale Last Admin: 07/03/18 17:45 Dose: 2 unit Insulin Human Regular (Humulin R) 0 units SC .MODERATE SLIDING SC PRN PRN Reason: Moderate Correctional Scale Last Admin: 07/02/18 12:10 Dose: 2 unit Irbesartan (Avapro) 300 mg PO DAILY [facility] Last Admin: 07/03/18 08:31 Dose: 300 mg Labetalol HCl (Normodyne) 10 mg SLOW IVP Q4H PRN PRN Reason: Systolic BP > 180 Last Admin: 07/03/18 17:43 Dose: 2 ml Levothyroxine Sodium (Synthroid) 125 mcg PO 0600 [facility] Last Admin: 07/03/18 05:52 Dose: 125 mcg Ondansetron HCl (Zofran Odt) 4 mg PO Q6H PRN PRN Reason: Nausea/Vomiting Ondansetron HCl (Zofran) 4 mg IVP Q6H PRN PRN Reason: Nausea/Vomiting Last Admin: 07/02/18 07:42 Dose: 4 mg Propranolol HCl (Inderal) 20 mg PO TID [facility] Last Admin: 07/03/18 16:15 Dose: 20 mg Sodium Chloride (Flush - Normal Saline) 10 ml IVF Q12HR [facility] Last Admin: 07/03/18 08:33 Dose: 10 ml Sodium Chloride (Flush - Normal Saline) 10 ml IVF PRN PRN PRN Reason: Saline Flush Tobramycin/Dexamethasone (Tobradex Ophth Oint Ointment) 0 gm EA EYE DAILY [facility] Last Admin: 07/03/18 08:33 Dose: 1 drop Tramadol HCl (Ultram) 50 mg PO Q4H PRN PRN Reason: Moderate Pain (4-6) Last Admin: 07/02/18 07:54 Dose: 50 mg
[2018-07-03] MEDS: Gabapentin 300 MG CAP PO SCH (20:02)
[2018-07-03] MEDS: cefTRIAXone\\ROCEPHIN 1 GM in Sodium Chloride 0.9% 100 ML IVPB SCH (20:07)
[2018-07-04 04:41] LABS: #Eosinphils 0.2 thou/uL (0.0-0.7); #Lymphocytes 2.1 thou/uL (1.20-3.40); #Monocytes 1.5 thou/uL (0.11-0.59); #Neutrophils 13.1 thou/uL (1.40-6.50); %Basophils 0.3 % (0.0-1.0); %Eosinophils 1.1 % (0.0-10.0); %Lymphocytes 12.6 % (21.0-51.0); %Monocytes 8.8 % (0.0-10.0); %Neutrophils 77.2 % (42.0-75.0); Hemoglobin 11.3 g/dL (12.0-16.0); Mean Corpuscular HGB CONC 32.5 g/dL (32.0-36.0); Mean Corpuscular Volume 86.2 fL (78.0-98.0); Mean Platelet Volume 6.9 fL (7.4-10.4); Platelet Count 418 thou/uL (130-400); RBC Distribution Width 12.5 % (11.5-14.5); Red Blood Cell (RBC) Count 4.03 mill/uL (4.20-5.40); White Blood Cell (WBC) Count 16.9 thou/uL (4.8-10.8)
[2018-07-04 04:53] LABS: Anion Gap 9 mmol/L (10-20); BUN (Urea Nitrogen) 10 mg/dL (9.8-20.1); Calc. Creatinine Clearance 61 mL/min (70-130); Calcium 9.4 mg/dL (7.8-10.44); Carbon Dioxide 28 mmol/L (23-31); Chloride 98 mmol/L (98-107); Estimated GFR-MDRD 72; Glucose 127 mg/dL (83-110); Potassium 3.6 mmol/L (3.5-5.1); Sodium 131 mmol/L (136-145)
[2018-07-04] MEDS: Levothyroxine Sodium 125 MCG TAB PO SCH (05:59)
[2018-07-04] MEDS: Labetalol HCl 100 MG/20 ML VIAL SLOW IVP PRN (06:01)
[2018-07-04] MEDS: Famotidine 20 MG TAB PO SCH ×2 (07:35→20:52)
[2018-07-04] MEDS: Acetaminophen 325 MG TAB PO SCH ×3 (07:35→20:51)
[2018-07-04] MEDS: Amlodipine 5 MG TAB PO SCH ×2 (07:35→20:51)
[2018-07-04] MEDS: Clopidogrel Bisulfate 75 MG TAB PO SCH (07:35)
[2018-07-04] MEDS: Atorvastatin Calcium 40 MG TAB PO SCH (07:36)
[2018-07-04] MEDS: Aspirin 81 mg Enteric Coated Tablet PO SCH (07:36)
[2018-07-04] MEDS: Propranolol HCl 20 MG TAB PO SCH ×3 (07:46→20:52)
[2018-07-04] MEDS: Insulin Glargine 35 UNITS in Pre-Filled Syringe 1 EACH SC SCH (08:34)
[2018-07-04] MEDS: Tobramycin/Dexamethasone Ophth Oint 3.5 GM TUBE EA EYE SCH (08:37)
--- NOTE | 2018-07-04 09:17 | PDOC.PN ---
- Subjective Encounter Start Date: 07/04/18 Encounter Start Time: 09:16 Subjective: feels weak and tired.no N/V/D/abd pain - Objective Resuscitation Status: Resuscitation Status FULL:Full Resuscitation MAR Reviewed: Yes Vital Signs & Weight: Vital Signs (12 hours) Temp Pulse Resp BP BP Pulse Ox 07/04/18 08:00 97 07/04/18 07:35 65 07/04/18 07:17 98.9 F 65 16 191/78 H 97 07/04/18 06:30 164/73 H 07/04/18 06:01 71 07/04/18 05:15 98 F 71 17 189/71 H 96 07/04/18 00:30 170/85 H Weight Weight 143 lb 4.8 oz I&O: 07/03/18 07/04/18 07/05/18 06:59 06:59 06:59 Intake Total 600 370 240 Output Total 620 Balance -20 370 240 Result Diagrams: 07/04/18 03:45 07/04/18 03:45 Additional Labs: Accuchecks 07/04/18 07/03/18 07/03/18 06:01 21:09 17:12 POC Glucose 129 H 281 H 219 H 07/03/18 07/03/18 11:53 09:21 POC Glucose 161 H 148 H Microbiology 07/01/18 00:15 Urine Straight Catheter Urine Culture - Final Alpha-Strep, not S. pneumoniae Laboratory Tests 07/01/18 07/01/18 07/02/18 00:31 10:52 03:27 WBC 22.4 H 17.2 H 18.5 H 07/04/18 03:45 WBC 16.9 H Phys Exam - Physical Examination Constitutional: NAD HEENT: PERRLA, moist MMs, sclera anicteric, oral pharynx no lesions Neck: no nodes, no JVD, supple, full ROM Respiratory: no wheezing, no rales, no rhonchi, clear to auscultation bilateral Cardiovascular: RRR, no significant murmur, no rub Gastrointestinal: soft, non-tender, no distention, positive bowel sounds Musculoskeletal: no edema, pulses present Neurological: non-focal, normal sensation, moves all 4 limbs Psychiatric: normal affect, A&O x 3 Skin: no rash Dx/Plan - Plan * .1. Toxic metabolic encephalopathy, multifactorial. 2. Hypotonic hyponatremia. multifactorial - improved after Samsca 3. Sepsis secondary to urinary tract infection. 4. Hypomagnesemia. 5. Mild protein calorie malnutrition. 6. Hypothyroidism. 7. Coronary artery disease on aspirin and Plavix. 8. Essential tremors, followed by Dr. Villalta. 9. Diabetes mellitus type 2. 10. History of seizures. 11. Hypertension. 12. Hyperlipidemia. 13. Chronic pain syndrome. 14. Gastroesophageal reflux disease. 15. Urinary incontinence. PLAN: Cont IV Ceftriaxone IVF dced.celexa stopped. BP remains elevated.increase amlodipine if no improvement. AM labs urine cultures-Alpha hemolytic Strept-Sensitivities pending. Cont other meds as below Inpt Rehab eval pending Cont sliding scale Urine cath PRN for PVR >300 Increased Lantus to 35 units QAM Review of Systems - Medications/Allergies Allergies/Adverse Reactions: Allergies Allergy/AdvReac Type Severity Reaction Status Date / Time No Known Drug Allergies Allergy Verified 07/01/18 03:17 Medications: Current Medications Acetaminophen (Tylenol) 650 mg PO Q4H PRN PRN Reason: Headache/Fever/Mild Pain (1-3) Last Admin: 07/02/18 20:22 Dose: 650 mg Acetaminophen (Tylenol) 650 mg PO TID [facility] Last Admin: 07/04/18 07:35 Dose: 650 mg Amlodipine Besylate (Norvasc) 5 mg PO BID [facility] Last Admin: 07/04/18 07:35 Dose: 5 mg Aspirin (Ecotrin) 81 mg PO DAILY [facility] Last Admin: 07/04/18 07:36 Dose: 81 mg Atorvastatin Calcium (Lipitor) 40 mg PO DAILY [facility] Last Admin: 07/04/18 07:36 Dose: 40 mg Calcium Carbonate (Tums) 1,000 mg PO Q4H PRN PRN Reason: Heartburn or Indigestion Clopidogrel Bisulfate (Plavix) 75 mg PO DAILY [facility] Last Admin: 07/04/18 07:35 Dose: 75 mg Dextrose/Water (Dextrose 50%) 25 gm SLOW IVP PRN PRN PRN Reason: Hypoglycemia Famotidine (Pepcid) 20 mg PO BID [facility] Last Admin: 07/04/18 07:35 Dose: 20 mg Gabapentin (Neurontin) 300 mg PO HS [facility] Last Admin: 07/03/18 20:02 Dose: 300 mg Glucagon (Glucagon) 1 mg IM PRN PRN PRN Reason: Hypoglycemia Hydralazine HCl (Apresoline) 10 mg SLOW IVP Q4H PRN PRN Reason: SBP Greater Than 180 Dextrose/Water (D5w) 1,000 mls @ 0 mls/hr IV .Q0M PRN PRN Reason: Hypoglycemia Ceftriaxone Sodium 1 gm/ (Sodium Chloride) 100 mls @ 200 mls/hr IVPB 2100 [facility] Last Admin: 07/03/18 20:07 Dose: 100 mls Insulin Glargine 35 units/ (Miscellaneous Medication) 0.35 mls @ 0 mls/hr SC QAM [facility] Last Admin: 07/04/18 08:34 Dose: 0.35 mls Insulin Human Regular (Humulin R) 0 units SC .BEDTIME SLIDING SC PRN PRN Reason: Bedtime Correctional Scale Last Admin: 07/03/18 21:10 Dose: 3 unit Insulin Human Regular (Humulin R) 0 units SC .MODERATE SLIDING SC PRN PRN Reason: Moderate Correctional Scale Last Admin: 07/02/18 12:10 Dose: 2 unit Irbesartan (Avapro) 300 mg PO DAILY [facility] Last Admin: 07/04/18 07:46 Dose: 300 mg Labetalol HCl (Normodyne) 10 mg SLOW IVP Q4H PRN PRN Reason: Systolic BP > 180 Last Admin: 07/04/18 06:01 Dose: 2 ml Levothyroxine Sodium (Synthroid) 125 mcg PO 0600 [facility] Last Admin: 07/04/18 05:59 Dose: 125 mcg Ondansetron HCl (Zofran Odt) 4 mg PO Q6H PRN PRN Reason: Nausea/Vomiting Ondansetron HCl (Zofran) 4 mg IVP Q6H PRN PRN Reason: Nausea/Vomiting Last Admin: 07/02/18 07:42 Dose: 4 mg Propranolol HCl (Inderal) 20 mg PO TID [facility] Last Admin: 07/04/18 07:46 Dose: 20 mg Sodium Chloride (Flush - Normal Saline) 10 ml IVF Q12HR [facility] Last Admin: 07/04/18 07:46 Dose: 10 ml Sodium Chloride (Flush - Normal Saline) 10 ml IVF PRN PRN PRN Reason: Saline Flush Tobramycin/Dexamethasone (Tobradex Ophth Oint Ointment) 0 gm EA EYE DAILY [facility] Last Admin: 07/04/18 08:37 Dose: 1 drop Tramadol HCl (Ultram) 50 mg PO Q4H PRN PRN Reason: Moderate Pain (4-6) Last Admin: 07/02/18 07:54 Dose: 50 mg
--- NOTE | 2018-07-04 09:53 | CON ---
DATE OF CONSULTATION: 07/01/2018 NEPHROLOGY CONSULTATION CONSULTING PHYSICIAN: Dr. Serrano. REASON FOR CONSULTATION: Hyponatremia. REASON FOR ADMISSION: Altered mentation. HISTORY OF PRESENT ILLNESS: This is a 77-year-old female with history of coronary artery disease, ch ronic pain, type 2 diabetes, hypertension and hyperlipidemia, who came to the hospital with altered m entation, was found to have hyponatremic. Patient's sodium was 123 and improved to 126 with hydratio n. The patient's last sodium is 136 two months back. No fever or chills, denies any nausea, vomiti ng. The patient was having altered mentation with possible UTI and is being treated. No chest pain, palpitation, no abdominal pain. PAST MEDICAL HISTORY: Positive for coronary artery disease, CKD, chronic pain, type 2 diabetes, seiz ure disorder, hypertension, hyperlipidemia, gastroesophageal disease. PAST SURGICAL HISTORY: Appendectomy, hernia repair, rectocele, bladder neck spasm, cataract, and lum bar surgery. ALLERGIES: No known drug allergies. HOME MEDICATIONS: Lipitor, citalopram, Plavix, dexamethasone, TobraDex, fluticasone, Humalog, Lasix, Levemir, levothyroxine, , Neurontin, propranolol. SOCIAL HISTORY: No smoking, alcohol or drug abuse. FAMILY HISTORY: No history of kidney disease. REVIEW OF SYSTEMS: The following complete review of systems was negative, unless otherwise mentioned in the HPI or below: Constitutional: Weight loss or gain, ability to conduct usual activities. Skin: Rash, itching. Eyes: Double vision, pain. ENT/Mouth: Nose bleeding, neck stiffness, pain, tenderness. Cardiovascular: Palpitations, dyspnea on exertion, orthopnea. Respiratory: Shortness of breath, wheezing, cough, hemoptysis, fever or night sweats. Gastrointestinal: Poor appetite, abdominal pain, heartburn, nausea, vomiting, constipation, or diarr hea. Genitourinary: Urgency, frequency, dysuria, nocturia. Musculoskeletal: Pain, swelling. Neurologic/Psychiatric: Anxiety, depression. Allergy/Immunologic: Skin rash, bleeding tendency. PHYSICAL EXAMINATION: GENERAL: This is a well-built white female in no apparent distress. VITAL SIGNS: Temperature 96, pulse 84, respiratory rate 16, blood pressure 165/78. HEENT: Atraumatic, normocephalic. Oral mucosa is moist. NECK: Supple, no masses. CARDIOVASCULAR: S1, S2. Rate and rhythm regular. RESPIRATORY: Clear. MUSCULOSKELETAL: 1+ edema. DERMATOLOGIC: No rash. NEUROLOGIC: Alert and awake. PSYCHIATRIC: Mood and affect normal. LABORATORY DATA: Hemoglobin is 11.0, potassium is 4.5, sodium is 126, BUN 16, creatinine 0.8. ASSESSMENT AND PLAN: 1. Hyponatremia, most likely volume depletion and medications induced. Agree with holding the cital opram and agree with hydration for now. Recheck urine studies and monitor sodium closely. Recheck s odium at 7 p.m. today. We will continue NS at 75 mL per hour. 2. Hypochloremia. 3. Edema, controlled. 4. Hypertension, stable. 5. Chronic kidney disease. 6. Sodium level is getting better with hydration. We will stop citalopram and continue hydration an d we will follow. Thank you for the consult.
[2018-07-04] MEDS: Gabapentin 300 MG CAP PO SCH (20:51)
[2018-07-04] MEDS: traMADol HCl 50 MG TAB PO PRN (20:52)
[2018-07-04] MEDS: Fluticasone Propionate Nasal Spray 16 gm Bottle NASAL SCH (20:53)
[2018-07-04] MEDS: cefTRIAXone\\ROCEPHIN 1 GM in Sodium Chloride 0.9% 100 ML IVPB SCH (20:53)
[2018-07-05] MEDS: Levothyroxine Sodium 125 MCG TAB PO SCH (05:20)
[2018-07-05] MEDS: Atorvastatin Calcium 40 MG TAB PO SCH (07:37)
[2018-07-05] MEDS: Acetaminophen 325 MG TAB PO SCH ×3 (07:37→20:35)
[2018-07-05] MEDS: Amlodipine 5 MG TAB PO SCH ×2 (07:38→20:35)
[2018-07-05] MEDS: Aspirin 81 mg Enteric Coated Tablet PO SCH (07:38)
[2018-07-05] MEDS: Propranolol HCl 20 MG TAB PO SCH ×3 (07:39→20:38)
[2018-07-05] MEDS: Clopidogrel Bisulfate 75 MG TAB PO SCH (07:39)
[2018-07-05] MEDS: Fluticasone Propionate Nasal Spray 16 gm Bottle NASAL SCH ×2 (07:40→20:34)
[2018-07-05] MEDS: Famotidine 20 MG TAB PO SCH ×2 (07:41→20:36)
[2018-07-05] MEDS: Insulin Glargine 35 UNITS in Pre-Filled Syringe 1 EACH SC SCH (08:57)
[2018-07-05] MEDS: Tobramycin/Dexamethasone Ophth Oint 3.5 GM TUBE EA EYE SCH (08:57)
[2018-07-05 10:03] LABS: Anion Gap 13 mmol/L (10-20); BUN (Urea Nitrogen) 12 mg/dL (9.8-20.1); Calc. Creatinine Clearance 53 mL/min (70-130); Carbon Dioxide 24 mmol/L (23-31); Chloride 97 mmol/L (98-107); Estimated GFR-MDRD 61; Glucose 200 mg/dL (83-110); Potassium 3.9 mmol/L (3.5-5.1); Sodium 130 mmol/L (136-145)
[2018-07-05] MEDS: traMADol HCl 50 MG TAB PO PRN ×3 (10:31→20:36)
[2018-07-05] MEDS ORDERED: Iopamidol 370 76% 100 ML VIAL ONE (11:11)
--- NOTE | 2018-07-05 14:44 | ULT ---
ARTERIOVASCULAR DUPLEX WITH COLOR AND SPECTRAL DOPPLER IMAGING: HISTORY: A 77-year-old female with cool extremity, coronary artery disease, discoloration, and pain. TECHNIQUE: Exam performed from groin to ankle. FINDINGS: There is somewhat decreased flow of 79 cm per second in the left common femoral artery with monophasi c flow and decreased velocity in the left profunda femoral, at 36 cm per second, with monophasic flow . No flow documented within the proximal, mid, or distal superficial femoral artery. There is 3.9 c m per second flow in the left popliteal and 6.5 cm flow seen in the anterior tibial artery, with no f low in the posterior tibial artery, and trace flow in the dorsalis pedis. IMPRESSION: 1. Very markedly severe decreased perfusion to the entire left lower extremity with no or only very minute flow seen below the level of the left common femoral artery. 2. Depending on concern, a follow-up CT angiogram of the abdomen and bilateral lower extremity compu erica tomography angiography study might be of benefit for further assessing this. Findings were discussed with the patient's nurse, by the nuclear cardiology technologist, at the time of the study. CODE CR POS: [facility]
--- NOTE | 2018-07-05 14:49 | ULT ---
LEFT LOWER EXTREMITY VENOUS DUPLEX ULTRASOUND INCLUDING COLOR AND SPECTRAL DOPPLER IMAGING: HISTORY: Left lower leg pain and discoloration. TECHNIQUE: Exam performed from groin to ankle, including visualized greater saphenous vein, common femoral vein, superficial femoral vein, profunda femoral vein, popliteal vein, trifurcation, and posterior tibial vein regions. FINDINGS: There is partial compressibility involving the common femoral vein, superficial femoral vein, poplite al vein, trifurcation vein, and profunda vein, with normal compressibility of the posterior tibial ve in and the saphenous vein. There is at least partial flow throughout the left lower extremity deep v enous system. Findings are consistent with extensive, incompletely obstructing thrombus from the tri furcation region up to and including the common femoral vein. IMPRESSION: Partially obstructing, extensive deep venous thrombosis from the common femoral vein down to the leve l of the trifurcation. The findings were discussed with the patient's nurse, by the ct scan special procedures technologist, at the time of this dictation, informing the nurse of the incompletely obstructing deep venous thrombosis. CODE CR POS: [facility]
--- NOTE | 2018-07-05 15:11 | PDOC.PN ---
- Subjective Encounter Start Date: 07/05/18 Encounter Start Time: 15:09 Subjective: C/O LEFT LEG PAIN AND DISCOLORATION -: REPORTS ONGOING PAIN x2 WEEKS BUT DISCOLORATION NEW RN noticed left toes turning purple & cool to touch - Objective Resuscitation Status: Resuscitation Status FULL:Full Resuscitation Vital Signs & Weight: Vital Signs (12 hours) Temp Pulse Resp BP BP Pulse Ox 07/05/18 07:38 68 185/70 H 07/05/18 07:16 98.4 F 68 16 185/70 H 96 Weight Weight 143 lb 4.8 oz I&O: 07/04/18 07/05/18 07/06/18 06:59 06:59 06:59 Intake Total 370 1626 Balance 370 1626 Result Diagrams: 07/04/18 03:45 07/05/18 09:18 Additional Labs: Accuchecks 07/05/18 07/04/18 07/04/18 04:48 19:21 16:23 POC Glucose 124 H 109 168 H Phys Exam - Physical Examination Constitutional: NAD HEENT: PERRLA, moist MMs, sclera anicteric, oral pharynx no lesions, 2+ tonsils Neck: no nodes, no JVD, supple, full ROM Respiratory: no wheezing, no rales, no rhonchi, clear to auscultation bilateral Cardiovascular: RRR, no significant murmur, no rub Gastrointestinal: soft, non-tender, no distention, positive bowel sounds Musculoskeletal: no edema, pulses present Livedo reticularis LLE,tender to Touch+Flash's.Left toes dusky Neurological: non-focal, normal sensation, moves all 4 limbs Psychiatric: normal affect, A&O x 3 Skin: no rash Dx/Plan - Plan plan discussed w/ family, PT/OT, out of bed/ambulate, DVT proph w/SCDs arterial & venous doppler ordered stat -: sevre arterial occlusion & Left leg DVT -: case discussed w [facility] CTS Dr Myrick.will order CTA -: start hepatrin drip w DVT protocol w/o bolus as pt also on Plavix -: hold plavix in anticipation of any procedures * .LEFT LEG DVT- ABOVE * LEFT LEG ARTERIAL OCCLUSION,SUBACUTE- ABOVE * .1. Toxic metabolic encephalopathy, multifactorial. -RESOLVED 2. Hypotonic hyponatremia. multifactorial - improved after Samsca.MONITOR 3. Sepsis secondary to urinary tract infection.-ON APPROPRIATE ANTIBIOTICS 4. Hypomagnesemia.-RESOLVED 5. Mild protein calorie malnutrition. 6. Hypothyroidism.-CONTINUE HOME MEDS 7. Coronary artery disease on aspirin and Plavix.-HOLD PLAVIX ABOVE 8. Essential tremors, followed by Dr. Villalta. 9. Diabetes mellitus type 2. 10. History of seizures. 11. Hypertension. 12. Hyperlipidemia. 13. Chronic pain syndrome. 14. Gastroesophageal reflux disease. 15. Urinary incontinence. PLAN- CONTINUE HOME MEDS BELOW ACCEPTED AT REHAB BUT NEEDS WORK UP AND RX FOR DVT AND ARTERIAL OCCLUSION.ONGOING FOR AT LEAST 2 WEEKA .PT WAS WORKED UP AT [facility] RECENTLY. Review of Systems - Review of Systems Constitutional: negative: fever, chills, sweats, weakness, malaise, other Eyes: negative: Pain, Vision Change, Conjunctivae Inflammation, Eyelid Inflammation, Redness, Other ENT: negative: Ear Pain, Ear Discharge, Nose Pain, Nose Discharge, Nose Congestion, Mouth Pain, Mouth Swelling, Throat Pain, Throat Swelling, Other Respiratory: negative: Cough, Dry, Shortness of Breath, Hemoptysis, SOB with Excertion, Pleuritic Pain, Sputum, Wheezing Cardiovascular: negative: chest pain, palpitations, orthopnea, paroxysmal nocturnal dyspnea, edema, light headedness, other Gastrointestinal: negative: Nausea, Vomiting, Abdominal Pain, Diarrhea, Constipation, Melena, Hematochezia, Other Genitourinary: negative: Dysuria, Frequency, Incontinence, Hematuria, Retention , Other Musculoskeletal: Leg Pain. negative: Neck Pain, Shoulder Pain, Arm Pain, Back Pain, Hand Pain, Foot Pain, Other Skin: negative: Rash, Lesions, Pankaj, Bruising, Other Neurological: negative: Weakness, Numbness, Incoordination, Change in Speech, Confusion, Seizures, Other - Medications/Allergies Allergies/Adverse Reactions: Allergies Allergy/AdvReac Type Severity Reaction Status Date / Time No Known Drug Allergies Allergy Verified 07/01/18 03:17 Medications: Current Medications Acetaminophen (Tylenol) 650 mg PO Q4H PRN PRN Reason: Headache/Fever/Mild Pain (1-3) Last Admin: 07/02/18 20:22 Dose: 650 mg Acetaminophen (Tylenol) 650 mg PO TID [facility] Last Admin: 07/05/18 07:37 Dose: 650 mg Amlodipine Besylate (Norvasc) 10 mg PO BID [facility] Last Admin: 07/05/18 07:38 Dose: 10 mg Aspirin (Ecotrin) 81 mg PO DAILY [facility] Last Admin: 07/05/18 07:38 Dose: 81 mg Atorvastatin Calcium (Lipitor) 40 mg PO DAILY [facility] Last Admin: 07/05/18 07:37 Dose: 40 mg Calcium Carbonate (Tums) 1,000 mg PO Q4H PRN PRN Reason: Heartburn or Indigestion Clopidogrel Bisulfate (Plavix) 75 mg PO DAILY [facility] Last Admin: 07/05/18 07:39 Dose: 75 mg Dextrose/Water (Dextrose 50%) 25 gm SLOW IVP PRN PRN PRN Reason: Hypoglycemia Famotidine (Pepcid) 20 mg PO BID [facility] Last Admin: 07/05/18 07:41 Dose: 20 mg Fluticasone Propionate (Flonase Nasal [place]) 0 gm NASAL BID [facility] Last Admin: 07/05/18 07:40 Dose: 2 spr Gabapentin (Neurontin) 300 mg PO HS [facility] Last Admin: 07/04/18 20:51 Dose: 300 mg Glucagon (Glucagon) 1 mg IM PRN PRN PRN Reason: Hypoglycemia Heparin Sodium (Porcine) (Heparin 1,000 Units/Ml (10 Ml)) 0 units SLOW IVP ASDIR [facility]; Protocol Hydralazine HCl (Apresoline) 10 mg SLOW IVP Q4H PRN PRN Reason: SBP Greater Than 180 Dextrose/Water (D5w) 1,000 mls @ 0 mls/hr IV .Q0M PRN PRN Reason: Hypoglycemia Ceftriaxone Sodium 1 gm/ (Sodium Chloride) 100 mls @ 200 mls/hr IVPB 2100 [facility] Last Admin: 07/04/18 20:53 Dose: 100 mls Insulin Glargine 35 units/ (Miscellaneous Medication) 0.35 mls @ 0 mls/hr SC QAM [facility] Last Admin: 07/05/18 08:57 Dose: 0.35 mls Heparin Sodium/Dextrose (Heparin 25,000 Units/D5w 500 Ml) 500 mls @ 0 mls/hr IVPB INF [facility]; Protocol Insulin Human Regular (Humulin R) 0 units SC .BEDTIME SLIDING SC PRN PRN Reason: Bedtime Correctional Scale Last Admin: 07/03/18 21:10 Dose: 3 unit Insulin Human Regular (Humulin R) 0 units SC .MODERATE SLIDING SC PRN PRN Reason: Moderate Correctional Scale Last Admin: 07/02/18 12:10 Dose: 2 unit Irbesartan (Avapro) 300 mg PO DAILY [facility] Last Admin: 07/05/18 07:39 Dose: 300 mg Labetalol HCl (Normodyne) 10 mg SLOW IVP Q4H PRN PRN Reason: Systolic BP > 180 Last Admin: 07/04/18 06:01 Dose: 2 ml Levothyroxine Sodium (Synthroid) 125 mcg PO 0600 [facility] Last Admin: 07/05/18 05:20 Dose: 125 mcg Ondansetron HCl (Zofran Odt) 4 mg PO Q6H PRN PRN Reason: Nausea/Vomiting Ondansetron HCl (Zofran) 4 mg IVP Q6H PRN PRN Reason: Nausea/Vomiting Last Admin: 07/02/18 07:42 Dose: 4 mg Propranolol HCl (Inderal) 20 mg PO TID [facility] Last Admin: 07/05/18 14:45 Dose: 20 mg Sodium Chloride (Flush - Normal Saline) 10 ml IVF Q12HR [facility] Last Admin: 07/05/18 07:40 Dose: 10 ml Sodium Chloride (Flush - Normal Saline) 10 ml IVF PRN PRN PRN Reason: Saline Flush Tobramycin/Dexamethasone (Tobradex Ophth Oint Ointment) 0 gm EA EYE DAILY [facility] Last Admin: 07/05/18 08:57 Dose: 1 drop Tramadol HCl (Ultram) 50 mg PO Q4H PRN PRN Reason: Moderate Pain (4-6) Last Admin: 07/05/18 14:39 Dose: 50 mg
[2018-07-05] MEDS ORDERED: Heparin 25,000 units/D5W 500 ML IVPB SCH (15:15)
[2018-07-05] MEDS ORDERED: Heparin 10,000 UNITS/ 10 ML VIAL SLOW IVP SCH (15:15)
[2018-07-05 15:28] LABS: Hemoglobin 10.9 g/dL (12.0-16.0); Platelet Count 402 thou/uL (130-400)
--- NOTE | 2018-07-05 18:19 | CT ---
CT ARTERIOGRAM ABDOMEN AND PELVIS WITH BILATERAL LOWER EXTREMITY RUNOFF WITH IV CONTRAST AND 3D MIP I MAGING: Date: 07/05/18 HISTORY: Vascular disease. Abnormal sonogram. Claudication. FINDINGS: Atelectasis and scarring at the right posterior medial lung base. Right pars interarticularis defect at the L5 level without spondylolisthesis. Prominent degenerative changes throughout the lumbar spine . Gas within a disc herniation at the left L3-4 neural foramen. Partial compression of the T11 verteb ral body having the appearance of chronic process. Small cyst at the inferior pole of the left kidney . Small hiatal hernia. Calcification throughout the arterial structures. Celiac artery is patent. Focal area of high grade s tenosis within the proximal superior mesenteric artery. Accessory artery to the superior pole of the right kidney is patent. Mild stenosis at the proximal portion of each renal artery. Good flow into th e inferior mesenteric artery. There is mild narrowing associated with an aortoiliac bypass which is p atent. Dense calcification surrounding the aortic component. Good flow into the right femoral system. Short segment stenosis of approximately 50% at the mid right femoral artery. Mild stenosis at the proximal margin of a right distal femoral artery stent. Mild st enosis at the popliteal artery. Three vessel flow to the right lower leg. There is good flow into the left common and external iliac arteries. At the left groin, an ill-define d area of soft tissue and calcific density is likely related to prior instrumentation. The overall di ameter is up to 3.3 cm on the axial images. It includes a focal area of contrast that may represent a n aneurysm or pseudoaneurysm. It measures up to 1.3 cm. At this level, there is occlusion of the left femoral artery with collateralization through the deep femoral artery. There is reconstitution of a stenotic popliteal artery. Multilevel severe stenosis of the femoral artery. There is calcification t hroughout the vessels of the lower leg without good evaluation of the lumens. IMPRESSION: 1. Severe atherosclerosis. Long segment occlusion of the left femoral arterial system with reconstit ution of a multilevel very stenotic popliteal artery. Prior intervention at the left groin with a pse udoaneurysm/aneurysm and surrounding soft tissue or fluid process, possibly hematoma, as detailed abo ve. 2. Multilevel less severe stenosis of the right leg runoff. 3. Significant stenosis of the proximal portion of superior mesenteric artery. 4. Degenerative changes lumbar spine with left posterolateral disc herniation at the L3-4 level. POS: [facility]
[2018-07-05] MEDS: Gabapentin 300 MG CAP PO SCH (20:36)
[2018-07-05] MEDS: cefTRIAXone\\ROCEPHIN 1 GM in Sodium Chloride 0.9% 100 ML IVPB SCH (20:37)
--- NOTE | 2018-07-05 21:59 | CON ---
DATE OF CONSULTATION: 07/05/2018 HISTORY OF PRESENT ILLNESS: This is a 77-year-old female admitted about 4 days ago. The patient rel ates a history of pain in her left lower leg for the past week and a half to 2 weeks. She was admitt ed at this time for altered mentation. No obvious etiology with a low sodium level. Today, I was ca lled because she had some mottling of her left lower extremity. The patient had previous distal aort ic stent, bilateral common iliac artery stents and most recently a right superficial femoral endarter ectomy and stenting via the left groin approach. Patient reports no symptoms prior to the stenting p rocedures. 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 She also had a possible left ankle fractu re in the last couple of months, it was treated medically. PAST SURGICAL HISTORY: Includes appendectomy, umbilical hernia repair, rectocele repair, cataract klein rgery, lumbar surgery. She has also seen Dr. Perdomo for her back and more recently and treated medic ally. MEDICATIONS: Include aspirin 81 a day, Plavix 75 a day, Lipitor 40 a day, Lasix 40 a day, Levemir 48 units a day, levothyroxine 125 a day, potassium 40 mEq b.i.d., propranolol 20 mg a day. ALLERGIES: None known. PHYSICAL EXAMINATION: GENERAL: Elderly lady in no distress. NECK: No carotid bruits. LUNGS: Clear to auscultation. CARDIAC: Regular rate and rhythm, occasional ectopic beat. No murmurs. ABDOMEN: Soft, nontender. EXTREMITIES: She has some petechial areas involving her left lower extremity with tenderness to palp ation of the calf area on anterior compartment, both of which are soft. She has a weak dorsalis pedi s signal, monophasic with slight bluish great toe which is absent of nail. Right leg has palpable po pliteal and dorsalis pedis pulse and both femoral pulses are present. LABORATORY DATA: Laboratory values are noted. IMAGING: CT scan was ordered and reviewed and pertinent abnormalities include a left femoral artery pseudoaneurysm with subtotal occlusion of the common femoral artery, occlusion of the superficial fem oral artery to just above the knee with heavily calcified and diseased popliteal and tibial vessels. She has profunda system with two sizable branches that filled from collaterals. PLAN: At this time, I think left common femoral endarterectomy with reperfusion of the deep femoral vessels should improve her circulation enough to void limb loss. I am hesitant to recommend a femora l to tibial bypass in addition due to her advanced age, apparent small saphenous vein on CT scan and diseased to tibial, and popliteal segments. Informed consent has been obtained.
[2018-07-06] MEDS: traMADol HCl 50 MG TAB PO PRN (01:48)
[2018-07-06] MEDS: Propranolol HCl 20 MG TAB PO SCH ×3 (05:05→21:14)
[2018-07-06 05:31] LABS: #Basophils 0.1 thou/uL (0.0-0.2); #Eosinphils 0.3 thou/uL (0.0-0.7); #Lymphocytes 2.5 thou/uL (1.20-3.40); #Monocytes 1.6 thou/uL (0.11-0.59); #Neutrophils 13.4 thou/uL (1.40-6.50); %Basophils 0.4 % (0.0-1.0); %Eosinophils 1.8 % (0.0-10.0); %Lymphocytes 13.9 % (21.0-51.0); %Monocytes 8.8 % (0.0-10.0); %Neutrophils 75.1 % (42.0-75.0); Hemoglobin 11.7 g/dL (12.0-16.0); Mean Corpuscular HGB CONC 32.1 g/dL (32.0-36.0); Mean Corpuscular Hemoglobin 27.5 pg (27.0-31.0); Mean Corpuscular Volume 85.7 fL (78.0-98.0); Mean Platelet Volume 6.9 fL (7.4-10.4); Platelet Count 415 thou/uL (130-400); RBC Distribution Width 12.8 % (11.5-14.5); Red Blood Cell (RBC) Count 4.26 mill/uL (4.20-5.40); White Blood Cell (WBC) Count 17.9 thou/uL (4.8-10.8)
[2018-07-06 05:44] LABS: PTT 136.9 SEC (22.9-36.1)
[2018-07-06 05:50] LABS: Anion Gap 13 mmol/L (10-20); BUN (Urea Nitrogen) 11 mg/dL (9.8-20.1); Calc. Creatinine Clearance 60 mL/min (70-130); Calcium 9.1 mg/dL (7.8-10.44); Carbon Dioxide 23 mmol/L (23-31); Chloride 95 mmol/L (98-107); Estimated GFR-MDRD 71; Glucose 115 mg/dL (83-110); Potassium 3.4 mmol/L (3.5-5.1); Sodium 128 mmol/L (136-145)
[2018-07-06] MEDS: Levothyroxine Sodium 125 MCG TAB PO SCH (06:10)
[2018-07-06] MEDS ORDERED: Protamine Sulfate 50 MG/5 ML VIAL ONE (06:32)
[2018-07-06] MEDS ORDERED: Bupivacaine/Epinephrine 0.25% 30 ML VIAL ONE (06:32)
[2018-07-06] MEDS ORDERED: Heparin 5,000 UNITS/ML VIAL ONE (06:32)
[2018-07-06] MEDS ORDERED: Fentanyl 100 MCG/2 ML VIAL ONE ×2 (06:35→07:08)
[2018-07-06] MEDS ORDERED: Midazolam HCl 2 mg/2 ml Vial ONE (06:35)
[2018-07-06] MEDS ORDERED: Heparin 10,000 UNITS/1 ML VIAL ONE (08:56)
[2018-07-06] MEDS: Acetaminophen 325 MG TAB PO SCH ×3 (10:24→21:12)
[2018-07-06] MEDS: Amlodipine 5 MG TAB PO SCH (10:24)
[2018-07-06] MEDS: Atorvastatin Calcium 40 MG TAB PO SCH (10:25)
[2018-07-06] MEDS: Famotidine 20 MG TAB PO SCH ×2 (10:25→21:12)
[2018-07-06] MEDS: Aspirin 81 mg Enteric Coated Tablet PO SCH (10:25)
[2018-07-06] MEDS: Fluticasone Propionate Nasal Spray 16 gm Bottle NASAL SCH ×2 (10:25→21:12)
[2018-07-06] MEDS: Insulin Glargine 35 UNITS in Pre-Filled Syringe 1 EACH SC SCH (10:25)
[2018-07-06] MEDS: Tobramycin/Dexamethasone Ophth Oint 3.5 GM TUBE EA EYE SCH (10:26)
[2018-07-06] MEDS ORDERED: SUGAMMADEX SODIUM 200 MG/2 ML VIAL ONE (10:53)
[2018-07-06] MEDS ORDERED: SUGAMMADEX SODIUM 500 MG/5 ML VIAL ONE (10:53)
[2018-07-06] MEDS ORDERED: Promethazine HCl 25 MG/ML VIAL IM PRN (11:12)
[2018-07-06] MEDS ORDERED: Promethazine HCl 25 MG/ML VIAL SLOW IVP PRN (11:12)
[2018-07-06] MEDS ORDERED: Ondansetron HCl/PF 4 MG/2 ML Vial IVP PRN (11:12)
--- NOTE | 2018-07-06 11:39 | OP ---
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 PROCEDURE PERFORMED: Extended left common and profunda femoral endarterectomy with bovine patch kasia oplasty. SURGEON: Keith Myrick M.D. ANESTHESIA: General. ESTIMATED BLOOD LOSS: 300. DESCRIPTION OF PROCEDURE: After adequate anesthesia had been obtained, ultrasound was used and a best ited view could be obtained what was happening in the groin. Incision was made over the left femoral area and dissection was carried down. There was intense inflammatory reaction over the region of th e femoral artery. Dissection up to the inguinal ligament revealed one area where the vessel could be isolated and dissected free. The superficial femoral artery was mobilized distally and this was onl y identified due to lack of pulse. Profunda branch was identified and at that time, the patient was heparinized, clamp applied on the common femoral artery and incision made over the mass. Initially, the common femoral artery was not isolated with the incision, but ultimately it was entered with diff iculty extended up toward the proximal clamp. There was bleeding from the posterior vessel near the profunda orifice and dissection was carried out after division of the superficial femoral artery and dissection posterior to it and there was a posterior profunda branch that was mobilized and clamped. Following this, endarterectomy was carried out. There was an area of soft mucoid material that was cultured within the vessel. The lumen was not clean as normal, but after removing as much debris as possible and plaque, it was felt suitable. The patch was then sewn in place incorporating the anteri or femoral artery and then onto the orifice of the superficial profunda branch, which had been incise d by about 1 cm. Prior to completion, vessels were flushed, back flushed and flow was then restored. Protamine was given to partially reverse the heparin and FloSeal was used on the surface of the pat ch. After obtaining good hemostasis with a good pulse in the profunda branch, the wound was closed w ith running Vicryl in layers. The patient is to be taken to the recovery room in guarded condition.
--- NOTE | 2018-07-06 12:16 | PRG ---
DATE OF SERVICE: 07/06/2018 SUBJECTIVE: This is a 77-year-old female being seen for hyponatremia. The patient denies any nausea , vomiting, or chest pain. OBJECTIVE: See above. Awake, alert, in no acute distress. GENERAL APPEARANCE AND MENTAL STATUS: Fair. VITAL SIGNS: Afebrile, pulse 69, breathing 16, blood pressure 166/82. HEAD/NECK: Normocephalic. Atraumatic. EYES: EOMI. No deformity. EARS: Clear. No ulcers. NOSE: Intact. No lesions. MOUTH: Clear. No discharge. THROAT: Clear. No exudate. LUNGS: Clear. No crackles. CARDIAC: S1, S2. No rub. ABDOMEN: Benign. BS+. GENITALIA/RECTUM: Ring absent. BACK/EXTREMITIES: Edema 0+ Ulcer- NEUROLOGICAL: Alert and motor intact. SKIN: Rash- Bruise- LYMPHATICS: Edema- Ulcer- LABORATORY: Sodium was 128. ASSESSMENT AND RECOMMENDATIONS: 1. Hyponatremia, most likely because of syndrome of excessive free water. I would recommend stoppin g normal saline. 2. Hypokalemia. Recommend potassium replacement. 3. Recommend fluid restriction.
[2018-07-06] MEDS ORDERED: Acetaminophen 325 MG TAB PO PRN (12:42)
[2018-07-06] MEDS ORDERED: Ondansetron PF 4 MG/2 ML Vial IVP PRN (12:42)
[2018-07-06] MEDS ORDERED: Fentanyl 100 MCG/2 ML VIAL SLOW IVP PRN (12:42)
[2018-07-06] MEDS ORDERED: Sodium Chloride 0.9% 1,000 ML IV SCH (12:42)
[2018-07-06] MEDS ORDERED: Heparin 10,000 UNITS/ 10 ML VIAL ONE (13:39)
[2018-07-06] MEDS ORDERED: Glycopyrrolate 0.2 MG/ML 5 ML SYRINGE ONE (13:39)
[2018-07-06] MEDS ORDERED: Vecuronium 10 MG VIAL ONE (13:39)
[2018-07-06] MEDS ORDERED: ePHEDrine/0.9% NaCl/PF SYRINGE 50 mg/10 ml ONE (13:39)
[2018-07-06] MEDS ORDERED: PROPOFOL 200 MG/20 ML VIAL ONE (13:39)
[2018-07-06] MEDS ORDERED: Ondansetron PF 4 MG/2 ML Vial ONE (13:39)
[2018-07-06] MEDS ORDERED: Lidocaine 1% PF 5 ML VIAL ONE (13:39)
[2018-07-06 13:45] LABS: Anion Gap 10 mmol/L (10-20); BUN (Urea Nitrogen) 12 mg/dL (9.8-20.1); Calc. Creatinine Clearance 58 mL/min (70-130); Calcium 8.5 mg/dL (7.8-10.44); Carbon Dioxide 22 mmol/L (23-31); Chloride 99 mmol/L (98-107); Estimated GFR-MDRD 68; Glucose 126 mg/dL (83-110); Potassium 3.8 mmol/L (3.5-5.1); Sodium 127 mmol/L (136-145)
--- NOTE | 2018-07-06 15:49 | PDOC.PN ---
- Subjective Encounter Start Date: 07/06/18 Encounter Start Time: 15:43 Subjective: s/p Left leg angioplasty today -: seen in room after surgery.reports feeling well -: no pain/no N/V.poor appetite - Objective Resuscitation Status: Resuscitation Status FULL:Full Resuscitation MAR Reviewed: Yes Vital Signs & Weight: Vital Signs (12 hours) Temp Pulse Resp BP Pulse Ox 07/06/18 12:15 98.4 F 71 20 166/67 H 92 L 07/06/18 10:24 69 07/06/18 05:55 98.5 F 69 18 183/74 H 95 Weight Weight 143 lb 4.8 oz I&O: 07/05/18 07/06/18 07/07/18 06:59 06:59 06:59 Intake Total 1626 75 Balance 1626 75 Result Diagrams: 07/06/18 04:22 07/06/18 13:11 Additional Labs: Accuchecks 07/06/18 07/06/18 07/05/18 12:29 05:04 20:42 POC Glucose 135 H 132 H 149 H 07/05/18 07/05/18 16:24 10:55 POC Glucose 155 H 203 H Microbiology 07/01/18 00:15 Urine Straight Catheter Urine Culture - Final Alpha-Strep, not S. pneumoniae Laboratory Tests 07/01/18 07/01/18 07/01/18 00:31 10:52 19:07 Sodium 123 L 126 L 121 L 07/01/18 07/02/18 07/02/18 19:07 03:27 15:53 Sodium 121 L 126 L 125 L 07/03/18 07/04/18 07/05/18 03:27 03:45 09:18 Sodium 134 L 131 L 130 L Phys Exam - Physical Examination Constitutional: NAD appears somewhat confused HEENT: PERRLA, moist MMs, sclera anicteric, oral pharynx no lesions Neck: no nodes, no JVD, supple, full ROM Respiratory: no wheezing, no rales, no rhonchi, clear to auscultation bilateral Cardiovascular: RRR, no significant murmur Gastrointestinal: soft, non-tender, no distention, positive bowel sounds Musculoskeletal: no edema, pulses present arterial site clean,no bleeding.left toe ischemia resolved Neurological: non-focal, normal sensation, moves all 4 limbs Psychiatric: normal affect, A&O x 3 Skin: no rash Dx/Plan - Plan * . .LEFT LEG DVT- ABOVE * LEFT LEG ARTERIAL OCCLUSION,SUBACUTE- ABOVE * .1. Toxic metabolic encephalopathy, multifactorial. -RESOLVED 2. Hypotonic hyponatremia. multifactorial - improved after Samsca.MONITOR 3. Sepsis secondary to urinary tract infection.-ON APPROPRIATE ANTIBIOTICS 4. Hypomagnesemia.-RESOLVED 5. Mild protein calorie malnutrition. 6. Hypothyroidism.-CONTINUE HOME MEDS 7. Coronary artery disease on aspirin and Plavix.-HOLD PLAVIX ABOVE 8. Essential tremors, followed by Dr. Villalta. 9. Diabetes mellitus type 2. 10. History of seizures. 11. Hypertension. 12. Hyperlipidemia. 13. Chronic pain syndrome. 14. Gastroesophageal reflux disease. 15. Urinary incontinence. PLAN- S/P ANGIOPLASTY.MONITOR CLINICALLY.TOE ISCHEMIA RESOLVED HD STABLE. CONT ANTIBIOTICS.CHANGE TO pO TOMORROW HOME MEDS BELOW. AM LABS Review of Systems - Review of Systems Constitutional: malaise. negative: fever, chills, sweats, weakness, other ENT: negative: Ear Pain, Ear Discharge, Nose Pain, Nose Discharge, Nose Congestion, Mouth Pain, Mouth Swelling, Throat Pain, Throat Swelling, Other Respiratory: negative: Cough, Dry, Shortness of Breath, Hemoptysis, SOB with Excertion, Pleuritic Pain, Sputum, Wheezing Cardiovascular: negative: chest pain, palpitations, orthopnea, paroxysmal nocturnal dyspnea, edema, light headedness, other Gastrointestinal: negative: Nausea, Vomiting, Abdominal Pain, Diarrhea, Constipation, Melena, Hematochezia, Other Genitourinary: negative: Dysuria, Frequency, Incontinence, Hematuria, Retention , Other Musculoskeletal: negative: Neck Pain, Shoulder Pain, Arm Pain, Back Pain, Hand Pain, Leg Pain, Foot Pain, Other Skin: negative: Rash, Lesions, Pankaj, Bruising, Other Neurological: negative: Weakness, Numbness, Incoordination, Change in Speech, Confusion, Seizures, Other - Medications/Allergies Allergies/Adverse Reactions: Allergies Allergy/AdvReac Type Severity Reaction Status Date / Time No Known Drug Allergies Allergy Verified 07/01/18 03:17 Medications: Current Medications Acetaminophen (Tylenol) 650 mg PO TID [facility] Last Admin: 07/06/18 10:24 Dose: Not Given Acetaminophen (Tylenol) 650 mg PO Q4H PRN PRN Reason: Fever > 101.5,CHEUNG, or mild pain Albuterol/Ipratropium (Duoneb) 3 ml NEB [id number] PRN PRN Reason: Wheezing Amlodipine Besylate (Norvasc) 10 mg PO DAILY [facility] Aspirin (Aspirin Chewable) 81 mg PO QAM [facility] Atorvastatin Calcium (Lipitor) 40 mg PO DAILY [facility] Last Admin: 07/06/18 10:25 Dose: Not Given Calcium Carbonate (Tums) 1,000 mg PO Q4H PRN PRN Reason: Heartburn or Indigestion Clopidogrel Bisulfate (Plavix) 75 mg PO DAILY [facility] Last Admin: 07/05/18 07:39 Dose: 75 mg Dextrose/Water (Dextrose 50%) 25 gm SLOW IVP PRN PRN PRN Reason: Hypoglycemia Famotidine (Pepcid) 20 mg PO BID [facility] Last Admin: 07/06/18 10:25 Dose: Not Given Fentanyl (Sublimaze) 25 mcg SLOW IVP Q2H PRN PRN Reason: Moderate Pain (4-6) Fluticasone Propionate (Flonase Nasal [place]) 0 gm NASAL BID [facility] Last Admin: 07/06/18 10:25 Dose: Not Given Gabapentin (Neurontin) 300 mg PO HS [facility] Last Admin: 07/05/18 20:36 Dose: 300 mg Glucagon (Glucagon) 1 mg IM PRN PRN PRN Reason: Hypoglycemia Hydralazine HCl (Apresoline) 10 mg SLOW IVP Q4H PRN PRN Reason: SBP Greater Than 180 Dextrose/Water (D5w) 1,000 mls @ 0 mls/hr IV .Q0M PRN PRN Reason: Hypoglycemia Insulin Glargine 35 units/ (Miscellaneous Medication) 0.35 mls @ 0 mls/hr SC QAM [facility] Last Admin: 07/06/18 10:25 Dose: Not Given Ceftriaxone Sodium 1 gm/ (Sodium Chloride) 100 mls @ 200 mls/hr IVPB Q24HR [facility] Stop: 07/08/18 21:01 Sodium Chloride (Normal Saline 0.9%) 1,000 mls @ 50 mls/hr IV .Q20H [facility] Last Admin: 07/06/18 13:51 Dose: Not Given Insulin Human Regular (Humulin R) 0 units SC .BEDTIME SLIDING SC PRN PRN Reason: Bedtime Correctional Scale Last Admin: 07/03/18 21:10 Dose: 3 unit Insulin Human Regular (Humulin R) 0 units SC .MODERATE SLIDING SC PRN PRN Reason: Moderate Correctional Scale Last Admin: 07/02/18 12:10 Dose: 2 unit Irbesartan (Avapro) 300 mg PO DAILY [facility] Last Admin: 07/06/18 10:25 Dose: Not Given Labetalol HCl (Normodyne) 10 mg SLOW IVP Q4H PRN PRN Reason: Systolic BP > 180 Last Admin: 07/04/18 06:01 Dose: 2 ml Levothyroxine Sodium (Synthroid) 125 mcg PO 0600 [facility] Last Admin: 07/06/18 06:10 Dose: Not Given Ondansetron HCl (Zofran Odt) 4 mg PO Q6H PRN PRN Reason: Nausea/Vomiting Ondansetron HCl (Zofran) 4 mg IVP Q6H PRN PRN Reason: Nausea/Vomiting Propranolol HCl (Inderal) 20 mg PO TID [facility] Last Admin: 07/06/18 05:05 Dose: 20 mg Sodium Chloride (Flush - Normal Saline) 10 ml IVF Q12HR [facility] Last Admin: 07/06/18 10:25 Dose: Not Given Sodium Chloride (Flush - Normal Saline) 10 ml IVF PRN PRN PRN Reason: Saline Flush Tobramycin/Dexamethasone (Tobradex Ophth Oint Ointment) 0 gm EA EYE DAILY [facility] Last Admin: 07/06/18 10:26 Dose: Not Given Tramadol HCl (Ultram) 50 mg PO Q4H PRN PRN Reason: Moderate Pain (4-6) Last Admin: 07/06/18 01:48 Dose: 50 mg
[2018-07-06 19:47] LABS: Anion Gap 13 mmol/L (10-20); BUN (Urea Nitrogen) 12 mg/dL (9.8-20.1); Calc. Creatinine Clearance 56 mL/min (70-130); Calcium 8.5 mg/dL (7.8-10.44); Carbon Dioxide 22 mmol/L (23-31); Chloride 100 mmol/L (98-107); Estimated GFR-MDRD 66; Glucose 132 mg/dL (83-110); Potassium 3.9 mmol/L (3.5-5.1); Sodium 131 mmol/L (136-145)
[2018-07-06] MEDS: Gabapentin 300 MG CAP PO SCH (21:12)
[2018-07-06] MEDS: cefTRIAXone\\ROCEPHIN 1 GM in Sodium Chloride 0.9% 100 ML IVPB SCH (21:13)
[2018-07-07 05:18] LABS: #Basophils 0.1 thou/uL (0.0-0.2); #Eosinphils 0.1 thou/uL (0.0-0.7); #Lymphocytes 1.8 thou/uL (1.20-3.40); #Monocytes 1.6 thou/uL (0.11-0.59); %Basophils 0.4 % (0.0-1.0); %Eosinophils 0.9 % (0.0-10.0); %Monocytes 9.5 % (0.0-10.0); %Neutrophils 78.2 % (42.0-75.0); Mean Corpuscular HGB CONC 32.4 g/dL (32.0-36.0); Mean Corpuscular Hemoglobin 28.1 pg (27.0-31.0); Mean Corpuscular Volume 86.8 fL (78.0-98.0); Mean Platelet Volume 6.6 fL (7.4-10.4); Platelet Count 374 thou/uL (130-400); RBC Distribution Width 12.7 % (11.5-14.5); Red Blood Cell (RBC) Count 3.19 mill/uL (4.20-5.40); White Blood Cell (WBC) Count 16.7 thou/uL (4.8-10.8)
[2018-07-07 05:38] LABS: Anion Gap 11 mmol/L (10-20); BUN (Urea Nitrogen) 10 mg/dL (9.8-20.1); Calc. Creatinine Clearance 59 mL/min (70-130); Calcium 8.3 mg/dL (7.8-10.44); Carbon Dioxide 24 mmol/L (23-31); Chloride 99 mmol/L (98-107); Estimated GFR-MDRD 69; Glucose 108 mg/dL (83-110); Potassium 3.6 mmol/L (3.5-5.1); Sodium 130 mmol/L (136-145)
[2018-07-07] MEDS: Levothyroxine Sodium 125 MCG TAB PO SCH (05:40)
[2018-07-07] MEDS: Famotidine 20 MG TAB PO SCH ×2 (09:33→20:40)
[2018-07-07] MEDS: Amlodipine 10 MG TAB PO SCH (09:33)
[2018-07-07] MEDS: Atorvastatin Calcium 40 MG TAB PO SCH (09:33)
[2018-07-07] MEDS: Propranolol HCl 20 MG TAB PO SCH ×3 (09:35→20:40)
[2018-07-07] MEDS: Acetaminophen 325 MG TAB PO SCH ×3 (09:35→20:40)
[2018-07-07] MEDS: Clopidogrel Bisulfate 75 MG TAB PO SCH (09:35)
[2018-07-07] MEDS: Fluticasone Propionate Nasal Spray 16 gm Bottle NASAL SCH ×2 (09:36→20:41)
[2018-07-07] MEDS: Insulin Glargine 35 UNITS in Pre-Filled Syringe 1 EACH SC SCH (09:39)
[2018-07-07] MEDS: Tobramycin/Dexamethasone Ophth Oint 3.5 GM TUBE EA EYE SCH (09:48)
[2018-07-07] MEDS ORDERED: Enoxaparin Sodium 60 MG/0.6 ML SYRINGE SC SCH (11:45)
--- NOTE | 2018-07-07 15:33 | PDOC.PN ---
- Subjective Encounter Start Date: 07/07/18 Encounter Start Time: 15:31 Subjective: remains confused on and off .care discussed with son at bedside -: eating a bit better. - Objective Resuscitation Status: Resuscitation Status FULL:Full Resuscitation MAR Reviewed: Yes Vital Signs & Weight: Vital Signs (12 hours) Temp Pulse Resp BP BP Pulse Ox 07/07/18 12:00 97.5 F L 80 18 176/72 H 94 L 07/07/18 11:03 98.7 F 112 H 16 192/101 H 96 07/07/18 09:33 82 07/07/18 08:00 96 07/07/18 04:35 97.7 F 80 20 188/69 H 95 Weight Weight 143 lb 4.8 oz I&O: 07/06/18 07/07/18 07/08/18 06:59 06:59 06:59 Intake Total 75 410 Output Total 1060 Balance 75 -650 Result Diagrams: 07/07/18 03:54 07/07/18 03:54 Additional Labs: Accuchecks 07/07/18 07/07/18 07/06/18 11:24 04:34 19:35 POC Glucose 256 H 141 H 197 H 07/06/18 16:54 POC Glucose 138 H Microbiology 07/01/18 00:15 Urine Straight Catheter Urine Culture - Final Alpha-Strep, not S. pneumoniae 07/06/18 09:24 Femur - Left Bacterial Culture - Preliminary Laboratory Tests 07/02/18 07/03/18 07/04/18 15:53 03:27 03:45 Sodium 125 L 134 L 131 L 07/05/18 07/06/18 07/06/18 09:18 04:22 13:11 Sodium 130 L 128 L 127 L 07/06/18 07/07/18 19:04 03:54 Sodium 131 L 130 L Phys Exam - Physical Examination Constitutional: NAD pale HEENT: PERRLA, moist MMs, sclera anicteric, oral pharynx no lesions Neck: no nodes, no JVD, supple, full ROM Respiratory: no wheezing, no rales, no rhonchi Cardiovascular: RRR, no significant murmur Gastrointestinal: soft, non-tender, no distention, positive bowel sounds Musculoskeletal: no edema, pulses present Neurological: non-focal, normal sensation, moves all 4 limbs Psychiatric: normal affect, A&O x 3 Skin: no rash Dx/Plan - Plan plan discussed w/ family, PT/OT, respiratory therapy, incentive spirometry, out of bed/ambulate, DVT proph w/SCDs * .LEFT LEG DVT- ABOVE * LEFT LEG ARTERIAL OCCLUSION,SUBACUTE- ABOVE * .1. Toxic metabolic encephalopathy, multifactorial. -Resolving 2. Hypotonic hyponatremia. multifactorial - improved after Samsca.MONITOR 3. Sepsis secondary to urinary tract infection.-ON APPROPRIATE ANTIBIOTICS 4. Hypomagnesemia.-RESOLVED 5. Mild protein calorie malnutrition. 6. Hypothyroidism.-CONTINUE HOME MEDS 7. Coronary artery disease on aspirin and Plavix.-HOLD PLAVIX ABOVE 8. Essential tremors, followed by Dr. Villalta. 9. Diabetes mellitus type 2. 10. History of seizures. 11. Hypertension. 12. Hyperlipidemia. 13. Chronic pain syndrome. 14. Gastroesophageal reflux disease. 15. Urinary incontinence. Plan-restart LOVENOB BID FOR LEFT LEG BID.MONITOR H/H.dISCUSSED WITH DR CUI. BP STILL HIGH.MAY NEED HYDRALZINE ADDED SODIUM BETTER. ON MILD FLUID RESTRICTION.CLINICALLY DRY START REHAB PLANNING AM LABS Review of Systems - Review of Systems Other: Limited ROS as pt pleasantly confused - Medications/Allergies Allergies/Adverse Reactions: Allergies Allergy/AdvReac Type Severity Reaction Status Date / Time No Known Drug Allergies Allergy Verified 07/01/18 03:17 Medications: Current Medications Acetaminophen (Tylenol) 650 mg PO TID [facility] Last Admin: 07/07/18 15:15 Dose: 650 mg Acetaminophen (Tylenol) 650 mg PO Q4H PRN PRN Reason: Fever > 101.5,CHEUNG, or mild pain Albuterol/Ipratropium (Duoneb) 3 ml NEB [id number] PRN PRN Reason: Wheezing Amlodipine Besylate (Norvasc) 10 mg PO DAILY [facility] Last Admin: 07/07/18 09:33 Dose: 10 mg Aspirin (Aspirin Chewable) 81 mg PO QAM [facility] Last Admin: 07/07/18 09:32 Dose: 81 mg Atorvastatin Calcium (Lipitor) 40 mg PO DAILY [facility] Last Admin: 07/07/18 09:33 Dose: 40 mg Calcium Carbonate (Tums) 1,000 mg PO Q4H PRN PRN Reason: Heartburn or Indigestion Clopidogrel Bisulfate (Plavix) 75 mg PO DAILY [facility] Last Admin: 07/07/18 09:35 Dose: 75 mg Dextrose/Water (Dextrose 50%) 25 gm SLOW IVP PRN PRN PRN Reason: Hypoglycemia Enoxaparin Sodium (Lovenox) 60 mg SC 0900,2100 [facility] Famotidine (Pepcid) 20 mg PO BID [facility] Last Admin: 07/07/18 09:33 Dose: 20 mg Fluticasone Propionate (Flonase Nasal [place]) 0 gm NASAL BID [facility] Last Admin: 07/07/18 09:36 Dose: 1 spr Gabapentin (Neurontin) 300 mg PO HS [facility] Last Admin: 07/06/18 21:12 Dose: 300 mg Glucagon (Glucagon) 1 mg IM PRN PRN PRN Reason: Hypoglycemia Hydralazine HCl (Apresoline) 10 mg SLOW IVP Q4H PRN PRN Reason: SBP Greater Than 180 Dextrose/Water (D5w) 1,000 mls @ 0 mls/hr IV .Q0M PRN PRN Reason: Hypoglycemia Insulin Glargine 35 units/ (Miscellaneous Medication) 0.35 mls @ 0 mls/hr SC QAM [facility] Last Admin: 07/07/18 09:39 Dose: 0.35 mls Ceftriaxone Sodium 1 gm/ (Sodium Chloride) 100 mls @ 200 mls/hr IVPB Q24HR [facility] Stop: 07/08/18 21:01 Last Admin: 07/06/18 21:13 Dose: 100 mls Insulin Human Regular (Humulin R) 0 units SC .BEDTIME SLIDING SC PRN PRN Reason: Bedtime Correctional Scale Last Admin: 07/03/18 21:10 Dose: 3 unit Insulin Human Regular (Humulin R) 0 units SC .MODERATE SLIDING SC PRN PRN Reason: Moderate Correctional Scale Last Admin: 07/02/18 12:10 Dose: 2 unit Irbesartan (Avapro) 300 mg PO DAILY [facility] Last Admin: 07/07/18 09:33 Dose: 150 mg Labetalol HCl (Normodyne) 10 mg SLOW IVP Q4H PRN PRN Reason: Systolic BP > 180 Last Admin: 07/04/18 06:01 Dose: 2 ml Levothyroxine Sodium (Synthroid) 125 mcg PO 0600 [facility] Last Admin: 07/07/18 05:40 Dose: 125 mcg Ondansetron HCl (Zofran Odt) 4 mg PO Q6H PRN PRN Reason: Nausea/Vomiting Ondansetron HCl (Zofran) 4 mg IVP Q6H PRN PRN Reason: Nausea/Vomiting Propranolol HCl (Inderal) 20 mg PO TID [facility] Last Admin: 07/07/18 15:15 Dose: 20 mg Sodium Chloride (Flush - Normal Saline) 10 ml IVF Q12HR [facility] Last Admin: 07/07/18 09:39 Dose: 10 ml Sodium Chloride (Flush - Normal Saline) 10 ml IVF PRN PRN PRN Reason: Saline Flush Tobramycin/Dexamethasone (Tobradex Ophth Oint Ointment) 0 gm EA EYE DAILY [facility] Last Admin: 07/07/18 09:48 Dose: Not Given Tramadol HCl (Ultram) 50 mg PO Q4H PRN PRN Reason: Moderate Pain (4-6) Last Admin: 07/06/18 01:48 Dose: 50 mg
[2018-07-07] MEDS: Insulin Regular 300 UNITS/3 ML VIAL SC PRN (18:32)
[2018-07-07] MEDS: Gabapentin 300 MG CAP PO SCH (20:39)
[2018-07-07] MEDS: cefTRIAXone\\ROCEPHIN 1 GM in Sodium Chloride 0.9% 100 ML IVPB SCH (20:45)
[2018-07-07] MEDS: Enoxaparin Sodium 60 MG/0.6 ML SYRINGE SC SCH (20:47)
--- NOTE | 2018-07-07 22:50 | PRG ---
DATE OF SERVICE: 07/07/2018 SUBJECTIVE: This is a 77-year-old female being seen for hyponatremia. The patient denies any nausea , vomiting or chest pain. PHYSICAL EXAMINATION: GENERAL: Patient is awake, alert. VITAL SIGNS: Pulse 71, breathing 16, blood pressure 166/60. GENERAL APPEARANCE AND MENTAL STATUS: Fair. HEAD/NECK: Normocephalic. Atraumatic. EYES: EOMI. No deformity. EARS: Clear. No ulcers. NOSE: Intact. No lesions. MOUTH: Clear. No discharge. THROAT: Clear. No exudate. LUNGS: Clear. No crackles. CARDIAC: S1, S2. No rub. ABDOMEN: Benign. BS+. GENITALIA/RECTUM: Ring absent. BACK/EXTREMITIES: Edema 0+ Ulcer- NEUROLOGICAL: Alert and motor intact. SKIN: Rash- Bruise- LYMPHATICS: Edema- Ulcer- LABORATORY: Hemoglobin 9, creatinine is 0.8. ASSESSMENT AND PLAN: 1. Hyponatremia, stable. 2. Chronic kidney disease, stable. Recommend 800 mL fluid restriction. I will sign off on this pat ient. Please reconsult as needed.
[2018-07-08] MEDS: Levothyroxine Sodium 125 MCG TAB PO SCH (05:37)
[2018-07-08 06:24] LABS: Anion Gap 15 mmol/L (10-20); BUN (Urea Nitrogen) 10 mg/dL (9.8-20.1); Calc. Creatinine Clearance 59 mL/min (70-130); Calcium 8.8 mg/dL (7.8-10.44); Carbon Dioxide 22 mmol/L (23-31); Chloride 96 mmol/L (98-107); Estimated GFR-MDRD 70; Glucose 118 mg/dL (83-110); Potassium 3.5 mmol/L (3.5-5.1); Sodium 129 mmol/L (136-145)
[2018-07-08 06:41] LABS: Band 7 % (5-11); Eosinophils 1 % (0-10); Lymphocytes 9 % (21-51); MDiff Complete? YES; Mean Corpuscular HGB CONC 32.1 g/dL (32.0-36.0); Mean Corpuscular Hemoglobin 27.7 pg (27.0-31.0); Mean Corpuscular Volume 86.3 fL (78.0-98.0); Mean Platelet Volume 6.7 fL (7.4-10.4); Monocytes 8 % (0-10); Myelocyte 1 % (0-0); Neutrophil 74 % (42-75); Platelet Count 385 thou/uL (130-400); Red Blood Cell (RBC) Count 3.59 mill/uL (4.20-5.40); White Blood Cell (WBC) Count 20.1 thou/uL (4.8-10.8)
[2018-07-08] MEDS: Famotidine 20 MG TAB PO SCH ×2 (08:15→21:43)
[2018-07-08] MEDS: Acetaminophen 325 MG TAB PO SCH ×3 (08:15→21:42)
[2018-07-08] MEDS: Atorvastatin Calcium 40 MG TAB PO SCH (08:15)
[2018-07-08] MEDS: Amlodipine 10 MG TAB PO SCH ×2 (08:15→21:43)
[2018-07-08] MEDS: Clopidogrel Bisulfate 75 MG TAB PO SCH (08:15)
[2018-07-08] MEDS: Propranolol HCl 20 MG TAB PO SCH ×3 (08:16→21:42)
[2018-07-08] MEDS: Insulin Glargine 35 UNITS in Pre-Filled Syringe 1 EACH SC SCH (08:20)
[2018-07-08] MEDS: Fluticasone Propionate Nasal Spray 16 gm Bottle NASAL SCH ×2 (08:21→21:44)
[2018-07-08] MEDS: Tobramycin/Dexamethasone Ophth Oint 3.5 GM TUBE EA EYE SCH (08:24)
--- NOTE | 2018-07-08 09:46 | RAD ---
PORTABLE CHEST: History: Cough, fever. Comparison: 12-08-04 FINDINGS: Heart size appears borderline to slightly enlarged. There are some chronic appearing interstitial sonali g changes seen. No focal infiltrative process. IMPRESSION: Borderline to minimal cardiomegaly with chronic appearing lung changes. POS: [facility]
[2018-07-08] MEDS: Enoxaparin Sodium 60 MG/0.6 ML SYRINGE SC SCH ×2 (12:13→21:42)
--- NOTE | 2018-07-08 14:54 | PDOC.PN ---
- Subjective Encounter Start Date: 07/08/18 Encounter Start Time: 14:53 Subjective: pt remian pleasently confused -: care discussed w son at bedside -: mild cough w drinking water this morning - Objective Resuscitation Status: Resuscitation Status FULL:Full Resuscitation MAR Reviewed: Yes Vital Signs & Weight: Vital Signs (12 hours) Temp Pulse Resp BP Pulse Ox 07/08/18 12:00 98.5 F 73 16 156/64 H 95 07/08/18 08:15 85 07/08/18 08:00 99.4 F 85 16 187/61 H 94 L Weight Weight 143 lb 4.8 oz I&O: 07/07/18 07/08/18 07/09/18 06:59 06:59 06:59 Intake Total 410 1600 Output Total 1060 Balance -650 1600 Result Diagrams: 07/08/18 03:44 07/08/18 03:44 Additional Labs: Accuchecks 07/08/18 07/08/18 07/07/18 12:00 03:57 19:13 POC Glucose 187 H 156 H 245 H 07/07/18 17:06 POC Glucose 268 H Radiology Reviewed by me: Yes (CXR-no infiltrates) Phys Exam - Physical Examination Constitutional: NAD smiling HEENT: PERRLA, moist MMs, sclera anicteric, oral pharynx no lesions Neck: no nodes, no JVD, supple, full ROM Respiratory: no wheezing, no rales, no rhonchi, clear to auscultation bilateral Cardiovascular: RRR, no significant murmur Gastrointestinal: soft, non-tender, no distention, positive bowel sounds Musculoskeletal: no edema, pulses present Neurological: non-focal, normal sensation, moves all 4 limbs Psychiatric: normal affect, A&O x 3 Skin: no rash Dx/Plan - Plan * ..LEFT LEG DVT- ABOVE * LEFT LEG ARTERIAL OCCLUSION,SUBACUTE- ABOVE * .1. Toxic metabolic encephalopathy, multifactorial. -Resolving 2. Hypotonic hyponatremia. multifactorial - improved after Samsca.MONITOR 3. Sepsis secondary to urinary tract infection.-ON APPROPRIATE ANTIBIOTICS 4. Hypomagnesemia.-RESOLVED 5. Mild protein calorie malnutrition. 6. Hypothyroidism.-CONTINUE HOME MEDS 7. Coronary artery disease on aspirin and Plavix.-HOLD PLAVIX ABOVE 8. Essential tremors, followed by Dr. Maraist. 9. Diabetes mellitus type 2. 10. History of seizures. 11. Hypertension. 12. Hyperlipidemia. 13. Chronic pain syndrome. 14. Gastroesophageal reflux disease. 15. Urinary incontinence. PLAN- WBC count still high.on ceftriaxone since admission w urine Cx w Alpha hemolytic strept.Low grade fever yesterday.? inflammatory due to recent Sx Vs sone indolent infection CXR clear will do PVR to r/o urinary retention consult glass breaker for silent aspiartion/Pt noted to be coughing after drinking water consult ID. repeat Blood Cx.follow sodium trending down again. doubt volume overload.monitor.Nephrology signed off Not ready for DC yet Cont LOvenox BID for Left leg DVT.monitor H/H monitor Lytes sup[portive care Discussed w family. Review of Systems - Review of Systems Constitutional: weakness, malaise. negative: fever, chills, sweats, other ENT: negative: Ear Pain, Ear Discharge, Nose Pain, Nose Discharge, Nose Congestion, Mouth Pain, Mouth Swelling, Throat Pain, Throat Swelling, Other Respiratory: negative: Cough, Dry, Shortness of Breath, Hemoptysis, SOB with Excertion, Pleuritic Pain, Sputum, Wheezing Cardiovascular: negative: chest pain, palpitations, orthopnea, paroxysmal nocturnal dyspnea, edema, light headedness, other Gastrointestinal: negative: Nausea, Vomiting, Abdominal Pain, Diarrhea, Constipation, Melena, Hematochezia, Other Genitourinary: negative: Dysuria, Frequency, Incontinence, Hematuria, Retention , Other Musculoskeletal: negative: Neck Pain, Shoulder Pain, Arm Pain, Back Pain, Hand Pain, Leg Pain, Foot Pain, Other Skin: negative: Rash, Lesions, Pankaj, Bruising, Other Neurological: negative: Weakness, Numbness, Incoordination, Change in Speech, Confusion, Seizures, Other - Medications/Allergies Allergies/Adverse Reactions: Allergies Allergy/AdvReac Type Severity Reaction Status Date / Time No Known Drug Allergies Allergy Verified 07/01/18 03:17 Medications: Current Medications Acetaminophen (Tylenol) 650 mg PO TID [facility] Last Admin: 07/08/18 14:47 Dose: 650 mg Acetaminophen (Tylenol) 650 mg PO Q4H PRN PRN Reason: Fever > 101.5,CHEUNG, or mild pain Albuterol/Ipratropium (Duoneb) 3 ml NEB [id number] PRN PRN Reason: Wheezing Amlodipine Besylate (Norvasc) 10 mg PO BID [facility] Aspirin ([facility]in Chewable) [facility] [place] Admin: 07/08/18 08:15 Dose: 81 mg Atorvastatin Calcium (Lipitor) 40 mg PO DAILY [facility] Last Admin: 07/08/18 08:15 Dose: 40 mg Calcium Carbonate (Tums) 1,000 mg PO Q4H PRN PRN Reason: Heartburn or Indigestion Clopidogrel Bisulfate (Plavix) 75 mg PO DAILY [facility] Last Admin: 07/08/18 08:15 Dose: 75 mg Dextrose/Water (Dextrose 50%) 25 gm SLOW IVP PRN PRN PRN Reason: Hypoglycemia Enoxaparin Sodium (Lovenox) 60 mg SC 0900,2100 [facility] Last Admin: 07/08/18 12:13 Dose: 60 mg Famotidine (Pepcid) 20 mg PO BID [facility] Last Admin: 07/08/18 08:15 Dose: 20 mg Fluticasone Propionate (Flonase Nasal [place]) 0 gm NASAL BID [facility] Last Admin: 07/08/18 08:21 Dose: 1 spr Gabapentin (Neurontin) 300 mg PO [facility] Last Admin: 07/07/18 20:39 Dose: 300 mg Glucagon (Glucagon) 1 mg IM PRN PRN PRN Reason: Hypoglycemia Hydralazine HCl (Apresoline) 10 mg SLOW IVP Q4H PRN PRN Reason: SBP Greater Than 180 Dextrose/Water (D5w) 1,000 mls @ 0 mls/hr IV .Q0M PRN PRN Reason: Hypoglycemia Insulin Glargine 35 units/ (Miscellaneous Medication) 0.35 mls @ 0 mls/hr SC [facility] Last Admin: 07/08/18 08:20 Dose: 0.35 mls Ceftriaxone Sodium 1 gm/ (Sodium Chloride) 100 mls @ 200 mls/hr IVPB Q24HR [facility] Stop: 07/08/18 21:01 Last Admin: 07/07/18 20:45 Dose: 100 mls Insulin Human Regular (Humulin R) 0 units SC .BEDTIME SLIDING SC PRN PRN Reason: Bedtime Correctional Scale Last Admin: 07/03/18 21:10 Dose: 3 unit Insulin Human Regular (Humulin R) 0 units SC .MODERATE SLIDING SC PRN PRN Reason: Moderate Correctional Scale Last Admin: 07/07/18 18:32 Dose: 6 unit Irbesartan (Avapro) 300 mg PO DAILY [facility] Last Admin: 07/08/18 08:15 Dose: 300 mg Labetalol HCl (Normodyne) 10 mg SLOW IVP Q4H PRN PRN Reason: Systolic BP > 180 Last Admin: 07/04/18 06:01 Dose: 2 ml Levothyroxine Sodium (Synthroid) 125 mcg PO 0600 [facility] Last Admin: 07/08/18 05:37 Dose: 125 mcg Ondansetron HCl (Zofran Odt) 4 mg PO Q6H PRN PRN Reason: Nausea/Vomiting Ondansetron HCl (Zofran) 4 mg IVP Q6H PRN PRN Reason: Nausea/Vomiting Propranolol HCl (Inderal) 20 mg PO TID [facility] Last Admin: 07/08/18 14:48 Dose: 20 mg Sodium Chloride (Flush - Normal Saline) 10 ml IVF Q12HR [facility] Last Admin: 07/08/18 08:24 Dose: Not Given Sodium Chloride (Flush - Normal Saline) 10 ml IVF PRN PRN PRN Reason: Saline Flush Tobramycin/Dexamethasone (Tobradex Ophth Oint Ointment) 0 gm EA EYE DAILY [facility] Last Admin: 07/08/18 08:24 Dose: Not Given Tramadol HCl (Ultram) 50 mg PO Q4H PRN PRN Reason: Moderate Pain (4-6) Last Admin: 07/06/18 01:48 Dose: 50 mg
--- NOTE | 2018-07-08 16:46 | CON ---
DATE OF CONSULTATION: 07/08/2018 REASON FOR CONSULTATION: Persistent neutrophilia. HISTORY OF PRESENT ILLNESS: A 77-year-old with history of peripheral vascular disease, type 2 diabetes, coronary artery disease, who was brought to the emergency room with new onset of altered mental status and low grade fever. The patient lives in an assisted living and was brought by daughter, apparently had sustained a fall 2 days prior to admission and was brought to the emergency room and at that time, x-rays of the hip and pelvis were negative. On arrival, the patient was given broad spectrum antimicrobial coverage. Initial temperature 98.8, respirations 17 and pulse 66 and blood pressure 154/64, O2 sats were 95%. She did not appear in distress. The overall exam was not reported as remarkable. The radial pulses were palpable, but no comment was made on lower extremity pulses. Initial sodium 123. Lactic acid 1.1. Urinalysis showed 7-[address] scan, it was not remarkable. WBC count 22, 000. Nephrology was consulted to evaluate hyponatremia. There was noticeable improvement in her mental state and initial impression was possible sepsis due to urinary tract infection. Her microbiology data showed alpha strep not strep pneumonia from the urine culture. She had a renal ultrasound which demonstrated mild right hydronephrosis and some urinary retention. Ultrasound of the arterial supply to the lower extremities were ordered and there was markedly decreased perfusion of the entire left lower extremity with only minute flow seen below the level of the left common femoral artery. Consultation of Dr. Myrick was obtained and the patient underwent intervention on 07/06/2018 and the procedure performed included extended left common and profunda femoral endarterectomy with bovine patch angioplasty. The patient has developed worsening neutrophilia and we were asked to evaluate. Currently, Ms. Arreola is awake. She has some hearing impairment. Her son is in the room with her. She knows she is in [facility] and did not know the year though, so she does have significant cognitive dysfunction. At this point, she denies any headaches, no change in visual symptoms, sore throat, odynophagia, dysphagia, no dyspnea or chest pain, no abdominal pain, voiding with no catheter and she has marked pain in the left lower extremity, particularly below the knee area at the calf region in the feet as well. She has pain at the left first toe. PAST MEDICAL HISTORY: Coronary artery disease, type 2 diabetes, peripheral vascular disease, seizure disorder, hypertension, incontinence of urine, GERD, fracture of left ankle managed conservatively. PAST SURGICAL HISTORY: Appendectomy, rectocele repair, bladder neck suspension , lumbar laminectomy. ALLERGIES: None. CURRENT MEDICATIONS: Tylenol, DuoNeb, Norvasc, aspirin, Lipitor, ceftriaxone, Plavix, famotidine, Lovenox, Neurontin, insulin, labetalol, ondansetron, and tobramycin. SOCIAL HISTORY: Assisted living status. Never smoked in her life. FAMILY HISTORY: Coronary artery disease. PHYSICAL EXAMINATION: VITAL SIGNS: T-max 99, blood pressure 150/64, pulse 73, respirations 16, O2 sat 95%. GENERAL: Appears in no distress. SKIN: Shows a livedo reticularis in the left calf, left leg. Cyanosis distal aspect of the left first toe and second as well. No lymphadenopathy. HEENT: Ocular movements are conjugate. Oral cavity moist, still a few teeth in place. NECK: Supple, no jugular distention. LUNGS: Symmetric, clear breath sounds. HEART: S1, S2, regular rate. No S3, S4. No murmurs. ABDOMEN: Soft, not distended or tender. No ascites. No bladder distention. EXTREMITIES: I could not feel any pulses in the left side below the popliteal and the extremity in the left side is warm though. She has marked tenderness on palpation of the calf region left side. The right side appears normal. She has faint dorsalis pedis pulses in the right foot. She has quite limited motion of the left leg because of pain and the right side appears to be normal strength. Upper extremities strength is preserved. NEUROLOGIC: Cognitive function. She is oriented to place only. Recollection is limited. LABORATORY DATA: White cell count is up from 18,000-20,000, hemoglobin 10, platelets 385, 74% neutrophils, 7% bands and she is fully anticoagulated at this time. Sodium 129, creatinine 0.79, calcium 8.8, bilirubin total 0.5 and AST 38, ALT 29, albumin 2.9. IMAGING STUDIES: There is a chest x-ray from 07/08/2018 with borderline minimal cardiomegaly and chronic changes, otherwise. ASSESSMENT: 1. Coronary artery disease and peripheral vascular disease. 2. Acute on chronic ischemia, left lower extremity status post endarterectomy of the profunda and superficial femoral arteries with patch angioplasty. 3. Neutrophilia. DISCUSSION: The most likely scenario here is persistent ischemia with tissue damage, probably some element of myositis from ischemia and/or reperfusion injury. I do not recommend initiation of antimicrobial therapy at this point in time. MTDD
--- NOTE | 2018-07-08 20:28 | CT ---
EXAM: CT BRAIN WITHOUT CONTRAST: 07/08/18 HISTORY: Lethargy. COMPARISON: CT brain 07/01/18. FINDINGS: Extensive subcortical and deep white matter microangiopathic changes, unchanged. Old left lacunar inf arct. No acute hemorrhage or large volume infarction. Chronic left maxillary sinusitis. IMPRESSION: Chronic findings. No acute intracranial abnormality. POS: [facility]
[2018-07-08] MEDS: Gabapentin 300 MG CAP PO SCH (21:43)
[2018-07-08] MEDS: cefTRIAXone\\ROCEPHIN 1 GM in Sodium Chloride 0.9% 100 ML IVPB SCH (21:57)
[2018-07-09] MEDS: Levothyroxine Sodium 125 MCG TAB PO SCH (05:39)
[2018-07-09] MEDS: Insulin Glargine 35 UNITS in Pre-Filled Syringe 1 EACH SC SCH (08:04)
[2018-07-09] MEDS: Enoxaparin Sodium 60 MG/0.6 ML SYRINGE SC SCH ×2 (08:05→23:05)
[2018-07-09] MEDS: Amlodipine 10 MG TAB PO SCH ×2 (08:05→23:04)
[2018-07-09] MEDS: Atorvastatin Calcium 40 MG TAB PO SCH (08:05)
[2018-07-09] MEDS: Famotidine 20 MG TAB PO SCH ×2 (08:05→23:04)
[2018-07-09] MEDS: Fluticasone Propionate Nasal Spray 16 gm Bottle NASAL SCH ×2 (08:06→23:05)
[2018-07-09] MEDS: Propranolol HCl 20 MG TAB PO SCH ×3 (08:06→23:05)
[2018-07-09] MEDS: Tobramycin/Dexamethasone Ophth Oint 3.5 GM TUBE EA EYE SCH (08:06)
[2018-07-09] MEDS: Clopidogrel Bisulfate 75 MG TAB PO SCH (08:06)
[2018-07-09] MEDS: Acetaminophen 325 MG TAB PO SCH ×3 (08:06→23:04)
[2018-07-09 09:36] LABS: Anion Gap 12 mmol/L (10-20); BUN (Urea Nitrogen) 9 mg/dL (9.8-20.1); Calc. Creatinine Clearance 64 mL/min (70-130); Calcium 8.5 mg/dL (7.8-10.44); Carbon Dioxide 20 mmol/L (23-31); Chloride 94 mmol/L (98-107); Estimated GFR-MDRD 77; Glucose 168 mg/dL (83-110); Potassium 3.6 mmol/L (3.5-5.1); Sodium 122 mmol/L (136-145)
[2018-07-09 09:47] LABS: Band 8 % (5-11); Eosinophils 1 % (0-10); Hemoglobin 9.5 g/dL (12.0-16.0); Lymphocytes 9 % (21-51); MDiff Complete? YES; Mean Corpuscular HGB CONC 31.7 g/dL (32.0-36.0); Mean Corpuscular Hemoglobin 27.5 pg (27.0-31.0); Mean Corpuscular Volume 86.9 fL (78.0-98.0); Mean Platelet Volume 6.7 fL (7.4-10.4); Monocytes 3 % (0-10); Neutrophil 79 % (42-75); Platelet Count 470 thou/uL (130-400); RBC Distribution Width 13.1 % (11.5-14.5); Red Blood Cell (RBC) Count 3.46 mill/uL (4.20-5.40); White Blood Cell (WBC) Count 25.3 thou/uL (4.8-10.8)
[2018-07-09 11:46] LABS: Anion Gap 12 mmol/L (10-20); BUN (Urea Nitrogen) 10 mg/dL (9.8-20.1); Calc. Creatinine Clearance 62 mL/min (70-130); Calcium 8.2 mg/dL (7.8-10.44); Carbon Dioxide 21 mmol/L (23-31); Chloride 94 mmol/L (98-107); Estimated GFR-MDRD 75; Glucose 153 mg/dL (83-110); Magnesium 1.4 mg/dL (1.6-2.6); Potassium 3.5 mmol/L (3.5-5.1); Sodium 123 mmol/L (136-145)
--- NOTE | 2018-07-09 13:09 | PDOC.PN ---
- Subjective Encounter Start Date: 07/09/18 Encounter Start Time: 13:08 Subjective: RN reports OOzing & bleeding from previous IV site,controlled w difficulty -: Care discussed w son at bedside.Pt remians confused but ate well - Objective Resuscitation Status: Resuscitation Status FULL:Full Resuscitation MAR Reviewed: Yes Vital Signs & Weight: Vital Signs (12 hours) Temp Pulse Resp BP BP Pulse Ox 07/09/18 08:23 97.8 F 73 16 179/72 H 96 07/09/18 08:05 76 174/68 H 07/09/18 08:00 96 07/09/18 04:00 98.0 F 76 20 174/68 H 96 Weight Weight 143 lb 4.8 oz I&O: 07/08/18 07/09/18 07/10/18 06:59 06:59 06:59 Intake Total 1600 1300 Balance 1600 1300 Result Diagrams: 07/09/18 09:01 07/09/18 11:06 Additional Labs: Accuchecks 07/09/18 07/09/18 07/08/18 11:24 05:21 20:52 POC Glucose 156 H 127 H 199 H 07/08/18 16:47 POC Glucose 193 H Microbiology 07/01/18 00:15 Urine Straight Catheter Urine Culture - Final Alpha-Strep, not S. pneumoniae 07/06/18 09:24 Femur - Left Bacterial Culture - Preliminary 07/06/18 09:24 Femur - Left Anaerobic Culture - Preliminary NO ANAEROBES ISOLATED IN 48 HOURS 07/06/18 09:24 Femur - Left Bacterial Culture - Preliminary 07/06/18 09:24 Femur - Left Anaerobic Culture - Preliminary NO ANAEROBES ISOLATED IN 48 HOURS Laboratory Tests 07/06/18 07/06/18 07/07/18 13:11 19:04 03:54 Sodium 127 L 131 L 130 L 07/08/18 03:44 Sodium 129 L Phys Exam - Physical Examination Constitutional: NAD smiling HEENT: PERRLA, sclera anicteric, oral pharynx no lesions slightly dry mucosa Neck: no nodes, no JVD, supple, full ROM Respiratory: no wheezing, no rales, no rhonchi, clear to auscultation bilateral Cardiovascular: RRR, no significant murmur Pedal pulse very faint Gastrointestinal: soft, non-tender, no distention, positive bowel sounds Musculoskeletal: no edema, pulses present IV site bleeding controlled Left forearm.Left great toe puprlish again Neurological: non-focal, normal sensation, moves all 4 limbs Psychiatric: normal affect Skin: no rash Dx/Plan - Plan * .Plan * ..LEFT LEG DVT- ABOVE * LEFT LEG ARTERIAL OCCLUSION,SUBACUTE- ABOVE * .1. Toxic metabolic encephalopathy, multifactorial. -Resolving 2. Hypotonic hyponatremia. multifactorial - improved after Samsca.MONITOR 3. Sepsis secondary to urinary tract infection.-ON APPROPRIATE ANTIBIOTICS 4. Hypomagnesemia.-RESOLVED 5. Mild protein calorie malnutrition. 6. Hypothyroidism.-CONTINUE HOME MEDS 7. Coronary artery disease on aspirin and Plavix.-HOLD PLAVIX ABOVE 8. Essential tremors, followed by Dr. Villalta. 9. Diabetes mellitus type 2. 10. History of seizures. 11. Hypertension. 12. Hyperlipidemia. 13. Chronic pain syndrome. 14. Gastroesophageal reflux disease. 15. Urinary incontinence. PLAN- Discussed w [facility] Dr casey who examined the pt as well. unfortunately not much to offer surgically given severe PAD.Cont Plavix for now.S/P Angioplasty by Dr Myrick 07/06/18. WBC count still high.on ceftriaxone since admission w urine Cx w Alpha hemolytic strept.discussed w ID DR Casillas d/t LE inflammatory process, recent Sx and DVT.No clinical evidence of sepsis. CXR clear Follow repeat blood Cx. Negative so far. sodium trending down again. doubt volume overload.monitor.Discussed w Nephrology again. Will put on strict fluid restriction.Pt had 1600 and 1300 ml fluid intake last two days.Transfer to [facility] given severe hyponatremia. DC ASA given easy IV site bleeding.Pt also on plavix for pad and Lovenox for DVT Cont LOvenox BID for Left leg DVT.monitor H/H monitor Lytes supportive care Discussed w family. Review of Systems - Review of Systems Other: can not be obtained due to confusion - Medications/Allergies Allergies/Adverse Reactions: Allergies Allergy/AdvReac Type Severity Reaction Status Date / Time No Known Drug Allergies Allergy Verified 07/01/18 03:17 Medications: Current Medications Acetaminophen (Tylenol) 650 mg PO TID [facility] Last Admin: 07/09/18 08:06 Dose: 650 mg Acetaminophen (Tylenol) 650 mg PO Q4H PRN PRN Reason: Fever > 101.5,CHEUNG, or mild pain Albuterol/Ipratropium (Duoneb) 3 ml NEB [id number] PRN PRN Reason: Wheezing Amlodipine Besylate (Norvasc) 10 mg PO BID [facility] Last Admin: 07/09/18 08:05 Dose: 10 mg Atorvastatin Calcium (Lipitor) 40 mg PO DAILY [facility] Last Admin: 07/09/18 08:05 Dose: 40 mg Calcium Carbonate (Tums) 1,000 mg PO Q4H PRN PRN Reason: Heartburn or Indigestion Clopidogrel Bisulfate (Plavix) 75 mg PO DAILY [facility] Last Admin: 07/09/18 08:06 Dose: 75 mg Dextrose/Water (Dextrose 50%) 25 gm SLOW IVP PRN PRN PRN Reason: Hypoglycemia Enoxaparin Sodium (Lovenox) 60 mg SC 0900,2100 [facility] Last Admin: 07/09/18 08:05 Dose: 60 mg Famotidine (Pepcid) 20 mg PO BID [facility] Last Admin: 07/09/18 08:05 Dose: 20 mg Fluticasone Propionate (Flonase Nasal [place]) 0 gm NASAL BID [facility] Last Admin: 07/09/18 08:06 Dose: 2 spr Gabapentin (Neurontin) 300 mg PO HS [facility] Last Admin: 07/08/18 21:43 Dose: 300 mg Glucagon (Glucagon) 1 mg IM PRN PRN PRN Reason: Hypoglycemia Hydralazine HCl (Apresoline) 10 mg SLOW IVP Q4H PRN PRN Reason: SBP Greater Than 180 Dextrose/Water (D5w) 1,000 mls @ 0 mls/hr IV .Q0M PRN PRN Reason: Hypoglycemia Insulin Glargine 35 units/ (Miscellaneous Medication) 0.35 mls @ 0 mls/hr SC QAM [facility] Last Admin: 07/09/18 08:04 Dose: 0.35 mls Insulin Human Regular (Humulin R) 0 units SC .BEDTIME SLIDING SC PRN PRN Reason: Bedtime Correctional Scale Last Admin: 07/03/18 21:10 Dose: 3 unit Insulin Human Regular (Humulin R) 0 units SC .MODERATE SLIDING SC PRN PRN Reason: Moderate Correctional Scale Last Admin: 07/07/18 18:32 Dose: 6 unit Irbesartan (Avapro) 300 mg PO DAILY [facility] Last Admin: 07/09/18 08:05 Dose: 300 mg Labetalol HCl (Normodyne) 10 mg SLOW IVP Q4H PRN PRN Reason: Systolic BP > 180 Last Admin: 07/04/18 06:01 Dose: 2 ml Levothyroxine Sodium (Synthroid) 125 mcg PO 0600 [facility] Last Admin: 07/09/18 05:39 Dose: 125 mcg Ondansetron HCl (Zofran Odt) 4 mg PO Q6H PRN PRN Reason: Nausea/Vomiting Ondansetron HCl (Zofran) 4 mg IVP Q6H PRN PRN Reason: Nausea/Vomiting Propranolol HCl (Inderal) 20 mg PO TID [facility] Last Admin: 07/09/18 08:06 Dose: 20 mg Sodium Chloride (Flush - Normal Saline) 10 ml IVF Q12HR [facility] Last Admin: 07/09/18 08:07 Dose: 10 ml Sodium Chloride (Flush - Normal Saline) 10 ml IVF PRN PRN PRN Reason: Saline Flush Tobramycin/Dexamethasone (Tobradex Ophth Oint Ointment) 0 gm EA EYE DAILY [facility] Last Admin: 07/09/18 08:06 Dose: 1 drop Tramadol HCl (Ultram) 50 mg PO Q4H PRN PRN Reason: Moderate Pain (4-6) Last Admin: 07/06/18 01:48 Dose: 50 mg
--- NOTE | 2018-07-09 14:06 | EKG ---
Test Reason : Blood Pressure : / mmHG Vent. Rate : 066 BPM Atrial Rate : 066 BPM P-R Int : 132 ms QRS Dur : 088 ms QT Int : 404 ms P-R-T Axes : 092 -18 044 degrees QTc Int : 423 ms Normal sinus rhythm Left ventricular hypertrophy with repolarization abnormality Abnormal ECG Confirmed by JOSEPHINE DAVE, JETT Brower ([id number]), writer editor LIO REY ([id number]) on 07/09/2018 2:06:03 PM Referred By: Confirmed By:JETT BURTON MD
--- NOTE | 2018-07-09 14:19 | PRG ---
DATE OF SERVICE: 07/09/2018 SUBJECTIVE: A 77-year-old female being reconsulted for hyponatremia. Again, the patient has not bee n on any fluid restriction. PHYSICAL EXAMINATION: GENERAL: Patient is awake, alert. VITAL SIGNS: Afebrile, pulse 76, breathing 16, blood pressure 170/68. HEAD/NECK: Normocephalic. Atraumatic. EYES: EOMI. No deformity. EARS: Clear. No ulcers. NOSE: Intact. No lesions. MOUTH: Clear. No discharge. THROAT: Clear. No exudate. LUNGS: Clear. No crackles. CARDIAC: S1, S2. No rub. ABDOMEN: Benign. BS+. GENITALIA/RECTUM: Ring absent. BACK/EXTREMITIES: Edema 0+ Ulcer- NEUROLOGICAL: Alert and motor intact. SKIN: Rash- Bruise- LYMPHATICS: Edema- Ulcer- LABORATORY DATA: Show sodium is 122, creatinine 0.73. ASSESSMENT AND RECOMMENDATIONS: 1. 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 I would again re iterate that the fluid restriction should be 800 mL per 24 hours. 2. hypertension, CKD stage 2.
--- NOTE | 2018-07-09 18:18 | PRG ---
DATE OF SERVICE: 07/09/2018 She is more sleepy today. Apparently, was very active during the day. She was able to wake up a lit tle bit and talk to me, but fell asleep rapidly. PHYSICAL EXAMINATION: VITAL SIGNS: T-max 98.9, blood pressure 150/53, pulse 80, respirations 18, O2 saturation 98%. Left leg appears improved today. The livedo reticularis is not as prominent. There is less tenderness, l ess swelling. The cyanosis of the distal aspect of the left foot is not as prominent either. EXTREMITIES: Warm. HEENT: Ocular movements conjugate. LUNGS: Clear. CARDIOVASCULAR: S1, S2, regular rate. ABDOMEN: Soft and not distended. LABORATORY DATA: White cell count 25,000, hemoglobin 9.5, platelets 470, 79% neutrophils. Creatinin e 0.75, sodium 123. ASSESSMENT AND DISCUSSION: Coronary artery disease and peripheral vascular disease with acute ischem ia, Left lower extremity status post endarterectomy with patch angioplasty and neutrophilia. DISCUSSION: Still most likely scenario is neutrophilia secondary to the left lower extremity ischemi a, maybe have some reperfusion inflammatory changes as well. Continue current management.
[2018-07-09 18:31] LABS: Anion Gap 10 mmol/L (10-20); BUN (Urea Nitrogen) 11 mg/dL (9.8-20.1); Calc. Creatinine Clearance 62 mL/min (70-130); Calcium 8.1 mg/dL (7.8-10.44); Carbon Dioxide 22 mmol/L (23-31); Chloride 95 mmol/L (98-107); Estimated GFR-MDRD 73; Glucose 112 mg/dL (83-110); Potassium 3.3 mmol/L (3.5-5.1); Sodium 124 mmol/L (136-145)
[2018-07-09] MEDS: Gabapentin 300 MG CAP PO SCH (23:04)
[2018-07-10] MEDS: Levothyroxine Sodium 125 MCG TAB PO SCH (06:38)
[2018-07-10 07:28] LABS: Anion Gap 12 mmol/L (10-20); BUN (Urea Nitrogen) 11 mg/dL (9.8-20.1); Calc. Creatinine Clearance 69 mL/min (70-130); Calcium 8.3 mg/dL (7.8-10.44); Carbon Dioxide 21 mmol/L (23-31); Chloride 97 mmol/L (98-107); Estimated GFR-MDRD 83; Glucose 80 mg/dL (83-110); Sodium 126 mmol/L (136-145)
[2018-07-10 07:45] LABS: #Basophils 0.1 thou/uL (0.0-0.2); #Eosinphils 0.3 thou/uL (0.0-0.7); #Lymphocytes 2.4 thou/uL (1.20-3.40); #Monocytes 1.5 thou/uL (0.11-0.59); %Basophils 0.3 % (0.0-1.0); %Eosinophils 1.4 % (0.0-10.0); %Lymphocytes 10.4 % (21.0-51.0); %Monocytes 6.5 % (0.0-10.0); %Neutrophils 81.5 % (42.0-75.0); Hemoglobin 8.6 g/dL (12.0-16.0); Mean Corpuscular HGB CONC 32.8 g/dL (32.0-36.0); Mean Corpuscular Hemoglobin 28.1 pg (27.0-31.0); Mean Corpuscular Volume 85.6 fL (78.0-98.0); Mean Platelet Volume 6.2 fL (7.4-10.4); Platelet Count 437 thou/uL (130-400); RBC Distribution Width 13.1 % (11.5-14.5); Red Blood Cell (RBC) Count 3.05 mill/uL (4.20-5.40); White Blood Cell (WBC) Count 23.4 thou/uL (4.8-10.8)
[2018-07-10] MEDS: Propranolol HCl 20 MG TAB PO SCH ×3 (08:15→21:15)
[2018-07-10] MEDS: Amlodipine 10 MG TAB PO SCH ×2 (08:15→21:16)
[2018-07-10] MEDS: Atorvastatin Calcium 40 MG TAB PO SCH (08:15)
[2018-07-10] MEDS: Famotidine 20 MG TAB PO SCH ×2 (08:15→21:15)
[2018-07-10] MEDS: Acetaminophen 325 MG TAB PO SCH ×3 (08:15→21:16)
[2018-07-10] MEDS: Clopidogrel Bisulfate 75 MG TAB PO SCH (08:15)
[2018-07-10] MEDS: Fluticasone Propionate Nasal Spray 16 gm Bottle NASAL SCH ×2 (08:16→21:16)
[2018-07-10] MEDS: Enoxaparin Sodium 60 MG/0.6 ML SYRINGE SC SCH ×2 (08:16→21:16)
[2018-07-10] MEDS: Tobramycin/Dexamethasone Ophth Oint 3.5 GM TUBE EA EYE SCH (08:16)
[2018-07-10] MEDS: Insulin Glargine 35 UNITS in Pre-Filled Syringe 1 EACH SC SCH (08:21)
--- NOTE | 2018-07-10 10:49 | PDOC.PN ---
- Subjective Encounter Start Date: 07/10/18 Encounter Start Time: 10:47 Subjective: feels OK. able to tell that she is at [facility] -: no overnight events but son reports some hallucinations last night - Objective Resuscitation Status: Resuscitation Status FULL:Full Resuscitation MAR Reviewed: Yes Vital Signs & Weight: Vital Signs (12 hours) Temp Pulse Resp BP BP Pulse Ox 07/10/18 08:15 69 157/67 H 07/10/18 07:10 97.6 F 69 16 157/67 H 97 07/09/18 23:04 76 160/63 H Weight Weight 143 lb 4.8 oz I&O: 07/09/18 07/10/18 07/11/18 06:59 06:59 06:59 Intake Total 1300 300 Balance 1300 300 Result Diagrams: 07/10/18 07:37 07/10/18 06:36 Additional Labs: Accuchecks 07/09/18 07/09/18 07/09/18 20:24 16:23 11:24 POC Glucose 142 H 133 H 156 H Microbiology 07/01/18 00:15 Urine Straight Catheter Urine Culture - Final Alpha-Strep, not S. pneumoniae 07/08/18 11:25 Venous blood - Right Hand Blood Culture - Preliminary Specimen has been received and culture in progress. No Growth to date. 07/08/18 11:25 Venous blood - Left Arm Blood Culture - Preliminary Specimen has been received and culture in progress. No Growth to date. 07/06/18 09:24 Femur - Left Bacterial Culture - Preliminary 07/06/18 09:24 Femur - Left Anaerobic Culture - Preliminary NO ANAEROBES ISOLATED IN 4 DAYS 07/06/18 09:24 Femur - Left Bacterial Culture - Preliminary 07/06/18 09:24 Femur - Left Anaerobic Culture - Preliminary NO ANAEROBES ISOLATED IN 3 DAYS Laboratory Tests 07/06/18 07/06/18 07/06/18 04:22 13:11 19:04 Sodium 128 L 127 L 131 L 07/07/18 07/08/18 07/09/18 03:54 03:44 09:01 Sodium 130 L 129 L 122 L 07/09/18 07/09/18 07/10/18 11:06 18:01 06:36 Sodium 123 L 124 L 126 L Phys Exam - Physical Examination Constitutional: NAD HEENT: PERRLA, moist MMs, sclera anicteric, oral pharynx no lesions Neck: no nodes, no JVD, supple, full ROM Respiratory: no wheezing, no rales, no rhonchi, clear to auscultation bilateral Cardiovascular: RRR, no significant murmur, no rub Gastrointestinal: soft, non-tender, no distention, positive bowel sounds Musculoskeletal: no edema, pulses present Neurological: non-focal, normal sensation, moves all 4 limbs Psychiatric: normal affect Dx/Plan - Plan * . * ..LEFT LEG DVT- ABOVE * LEFT LEG ARTERIAL OCCLUSION,SUBACUTE- ABOVE * .1. Toxic metabolic encephalopathy, multifactorial. -Resolving 2. Hypotonic hyponatremia. multifactorial - improved after Samsca.MONITOR 3. Sepsis secondary to urinary tract infection.-ON APPROPRIATE ANTIBIOTICS 4. Hypomagnesemia.-RESOLVED 5. Mild protein calorie malnutrition. 6. Hypothyroidism.-CONTINUE HOME MEDS 7. Coronary artery disease on aspirin and Plavix. 8. Essential tremors, followed by Dr. Villalta. 9. Diabetes mellitus type 2. 10. History of seizures. 11. Hypertension. 12. Hyperlipidemia. 13. Chronic pain syndrome. 14. Gastroesophageal reflux disease. 15. Urinary incontinence. PLAN- CONT LOVENOX BID FOR NOW.CHANGE TO PO ON DC SODIUM IMPROVING WITH STRICT FLUID RESTRICTION.CHECK IN AM MENTATION IMPROVING.MONITOR.LIKELY DUE TO LOW SODIUM WALKED IN HALLWAYS W PT. REHAB WHEN READY FOR DC S/P ANGIOPLASTY THIS ADMISSION FOR ACUTE LEG ISCHEMIA.STILL W SIGNIFICANT RESIDUAL ARTERIAL DISEASE.ON PLAVIX.ASA STOPPED YESTERDAY DUE TO IV SITE BLEEDING AM LABS WBC HIGH LIKELY DUE TO IMFALMMATION & STRESS.RECHECK. REPEAT CX NEGATIVE SO FAR. NO CLINICAL EVIDENCE OF SEPSIS Review of Systems - Review of Systems Constitutional: weakness Other: limited due to some confusion.Denies any pain/discomfort - Medications/Allergies Allergies/Adverse Reactions: Allergies Allergy/AdvReac Type Severity Reaction Status Date / Time No Known Drug Allergies Allergy Verified 07/01/18 03:17 Medications: Current Medications Acetaminophen (Tylenol) 650 mg PO TID [facility] Last Admin: 07/10/18 08:15 Dose: 650 mg Acetaminophen (Tylenol) 650 mg PO Q4H PRN PRN Reason: Fever > 101.5,CHEUNG, or mild pain Albuterol/Ipratropium (Duoneb) 3 ml NEB Q8SX-DV PRN PRN Reason: Wheezing Amlodipine Besylate (Norvasc) 10 mg PO BID [facility] Last Admin: 07/10/18 08:15 Dose: 10 mg Atorvastatin Calcium (Lipitor) 40 mg PO DAILY [facility] Last Admin: 07/10/18 08:15 Dose: 40 mg Calcium Carbonate (Tums) 1,000 mg PO Q4H PRN PRN Reason: Heartburn or Indigestion Clopidogrel Bisulfate (Plavix) 75 mg PO DAILY [facility] Last Admin: 07/10/18 08:15 Dose: 75 mg Dextrose/Water (Dextrose 50%) 25 gm SLOW IVP PRN PRN PRN Reason: Hypoglycemia Enoxaparin Sodium (Lovenox) 60 mg SC 0900,2100 [facility] Last Admin: 07/10/18 08:16 Dose: 60 mg Famotidine (Pepcid) 20 mg PO BID [facility] Last Admin: 07/10/18 08:15 Dose: 20 mg Fluticasone Propionate (Flonase Nasal [place]) 0 gm NASAL BID [facility] Last Admin: 07/10/18 08:16 Dose: 2 spr Gabapentin (Neurontin) 300 mg PO HS [facility] Last Admin: 07/09/18 23:04 Dose: 300 mg Glucagon (Glucagon) 1 mg IM PRN PRN PRN Reason: Hypoglycemia Hydralazine HCl (Apresoline) 10 mg SLOW IVP Q4H PRN PRN Reason: SBP Greater Than 180 Dextrose/Water (D5w) 1,000 mls @ 0 mls/hr IV .Q0M PRN PRN Reason: Hypoglycemia Insulin Glargine 35 units/ (Miscellaneous Medication) 0.35 mls @ 0 mls/hr SC QAM [facility] Last Admin: 07/10/18 08:21 Dose: 0.35 mls Insulin Human Regular (Humulin R) 0 units SC .BEDTIME SLIDING SC PRN PRN Reason: Bedtime Correctional Scale Last Admin: 07/03/18 21:10 Dose: 3 unit Insulin Human Regular (Humulin R) 0 units SC .MODERATE SLIDING SC PRN PRN Reason: Moderate Correctional Scale Last Admin: 07/07/18 18:32 Dose: 6 unit Irbesartan (Avapro) 300 mg PO DAILY [facility] Last Admin: 07/10/18 08:15 Dose: 300 mg Labetalol HCl (Normodyne) 10 mg SLOW IVP Q4H PRN PRN Reason: Systolic BP > 180 Last Admin: 07/04/18 06:01 Dose: 2 ml Levothyroxine Sodium (Synthroid) 125 mcg PO 0600 [facility] Last Admin: 07/10/18 06:38 Dose: 125 mcg Ondansetron HCl (Zofran Odt) 4 mg PO Q6H PRN PRN Reason: Nausea/Vomiting Ondansetron HCl (Zofran) 4 mg IVP Q6H PRN PRN Reason: Nausea/Vomiting Propranolol HCl (Inderal) 20 mg PO TID [facility] Last Admin: 07/10/18 08:15 Dose: 20 mg Sodium Chloride (Flush - Normal Saline) 10 ml IVF Q12HR [facility] Last Admin: 07/10/18 08:18 Dose: 10 ml Sodium Chloride (Flush - Normal Saline) 10 ml IVF PRN PRN PRN Reason: Saline Flush Tobramycin/Dexamethasone (Tobradex Ophth Oint Ointment) 0 gm EA EYE DAILY [facility] Last Admin: 07/10/18 08:16 Dose: 2 drop Tramadol HCl (Ultram) 50 mg PO Q4H PRN PRN Reason: Moderate Pain (4-6) Last Admin: 07/06/18 01:48 Dose: 50 mg
[2018-07-10 11:47] LABS: Anion Gap 11 mmol/L (10-20); BUN (Urea Nitrogen) 11 mg/dL (9.8-20.1); Calc. Creatinine Clearance 62 mL/min (70-130); Calcium 8.1 mg/dL (7.8-10.44); Carbon Dioxide 20 mmol/L (23-31); Chloride 96 mmol/L (98-107); Estimated GFR-MDRD 73; Glucose 176 mg/dL (83-110); Magnesium 1.6 mg/dL (1.6-2.6); Potassium 3.4 mmol/L (3.5-5.1); Sodium 124 mmol/L (136-145)
[2018-07-10 12:10] LABS: Bilirubin Negative (Negative); Blood, Urine Small (Negative); Clarity CLEAR (Clear); Glucose, Urine (Dipstick) Negative (Negative); Leukocyte Negative (Negative); Nitrite Negative (Negative); Protein, Urine (Dipstick) 300 mg/dL (Neg-Trace); Specific Gravity, Urine 1.012 (1.002-1.036); Urobilinogen 0.2 mg/dL (0.2-1.0)
[2018-07-10 12:12] LABS: Bacteria/HPF None Seen HPF (None Seen); Hyaline Casts/LPF 0-3 HYALINE CAST LPF (0-3 Hyaline); Pathc Cast-AUWi Flag 0.87 (0-2.49); RBC/HPF 0-3 HPF (0-3); WBC/HPF 0-3 HPF (0-3)
--- NOTE | 2018-07-10 12:47 | PRG ---
DATE OF SERVICE: 07/10/2018 SUBJECTIVE: A 77-year-old female being seen for hyponatremia. The patient denies any nausea, vomiti ng or chest pain. PHYSICAL EXAMINATION: GENERAL: Patient is awake, alert. VITAL SIGNS: Afebrile, pulse 69, breathing 16, blood pressure 157/67. HEAD/NECK: Normocephalic. Atraumatic. EYES: EOMI. No deformity. EARS: Clear. No ulcers. NOSE: Intact. No lesions. MOUTH: Clear. No discharge. THROAT: Clear. No exudate. LUNGS: Clear. No crackles. CARDIAC: S1, S2. No rub. ABDOMEN: Benign. BS+. GENITALIA/RECTUM: Ring absent. BACK/EXTREMITIES: Edema 0+ Ulcer- NEUROLOGICAL: Alert and motor intact. SKIN: Rash- Bruise- LYMPHATICS: Edema- Ulcer- LABORATORY DATA: Show sodium is improved to 126. ASSESSMENT AND RECOMMENDATIONS: 1. Hyponatremia, most likely because of persistent hyponatremia, most likely because of syndrome of inappropriate antidiuretic hormone secretion and volume overload. Would recommend 800 mL fluid restr iction. Hyponatremia, start Samsca, recheck sodium at 18:00. 2. Hypomagnesemia. Would recommend checking magnesium. 3. Anemia stable. 4. Medications based on glomerular filtration rate are approved.
[2018-07-10] MEDS ORDERED: Tolvaptan 15 MG TAB PO SCH (13:00)
[2018-07-10] MEDS: Phenazopyridine HCl 97.5 MG TABLET PO SCH ×2 (13:08→18:13)
[2018-07-10 20:23] LABS: Anion Gap 12 mmol/L (10-20); BUN (Urea Nitrogen) 14 mg/dL (9.8-20.1); Calc. Creatinine Clearance 48 mL/min (70-130); Calcium 8.1 mg/dL (7.8-10.44); Carbon Dioxide 20 mmol/L (23-31); Chloride 97 mmol/L (98-107); Estimated GFR-MDRD 55; Glucose 273 mg/dL (83-110); Potassium 3.7 mmol/L (3.5-5.1); Sodium 125 mmol/L (136-145)
[2018-07-10] MEDS: Gabapentin 300 MG CAP PO SCH (21:16)
[2018-07-11 05:28] LABS: #Eosinphils 0.4 thou/uL (0.0-0.7); #Lymphocytes 2.1 thou/uL (1.20-3.40); #Monocytes 1.3 thou/uL (0.11-0.59); #Neutrophils 14.5 thou/uL (1.40-6.50); %Basophils 0.2 % (0.0-1.0); %Lymphocytes 11.4 % (21.0-51.0); %Monocytes 7.1 % (0.0-10.0); %Neutrophils 79.4 % (42.0-75.0); Hemoglobin 8.1 g/dL (12.0-16.0); Mean Corpuscular HGB CONC 31.8 g/dL (32.0-36.0); Mean Corpuscular Hemoglobin 27.3 pg (27.0-31.0); Mean Corpuscular Volume 85.8 fL (78.0-98.0); Mean Platelet Volume 6.6 fL (7.4-10.4); Platelet Count 464 thou/uL (130-400); RBC Distribution Width 13.2 % (11.5-14.5); Red Blood Cell (RBC) Count 2.99 mill/uL (4.20-5.40); White Blood Cell (WBC) Count 18.2 thou/uL (4.8-10.8)
[2018-07-11 05:52] LABS: Anion Gap 11 mmol/L (10-20); BUN (Urea Nitrogen) 14 mg/dL (9.8-20.1); Calc. Creatinine Clearance 56 mL/min (70-130); Calcium 8.4 mg/dL (7.8-10.44); Carbon Dioxide 23 mmol/L (23-31); Chloride 100 mmol/L (98-107); Estimated GFR-MDRD 66; Glucose 153 mg/dL (83-110); Potassium 3.2 mmol/L (3.5-5.1); Sodium 131 mmol/L (136-145)
[2018-07-11] MEDS: Levothyroxine Sodium 125 MCG TAB PO SCH (06:16)
[2018-07-11] MEDS: Tobramycin/Dexamethasone Ophth Oint 3.5 GM TUBE EA EYE SCH (07:21)
[2018-07-11] MEDS: Phenazopyridine HCl 97.5 MG TABLET PO SCH ×3 (07:22→18:39)
[2018-07-11] MEDS: Fluticasone Propionate Nasal Spray 16 gm Bottle NASAL SCH ×2 (07:22→21:55)
[2018-07-11] MEDS: Famotidine 20 MG TAB PO SCH ×2 (07:22→21:53)
[2018-07-11] MEDS: Propranolol HCl 20 MG TAB PO SCH ×3 (07:23→21:53)
[2018-07-11] MEDS: Acetaminophen 325 MG TAB PO SCH ×3 (07:23→21:54)
[2018-07-11] MEDS: Clopidogrel Bisulfate 75 MG TAB PO SCH (07:23)
[2018-07-11] MEDS: Atorvastatin Calcium 40 MG TAB PO SCH (07:23)
[2018-07-11] MEDS: Amlodipine 10 MG TAB PO SCH ×2 (07:24→21:54)
[2018-07-11] MEDS: Enoxaparin Sodium 60 MG/0.6 ML SYRINGE SC SCH ×2 (07:28→21:54)
[2018-07-11] MEDS: Insulin Glargine 35 UNITS in Pre-Filled Syringe 1 EACH SC SCH (10:22)
[2018-07-11] MEDS: Potassium Chloride 20 MEQ TAB PO SCH ×3 (11:25→18:39)
--- NOTE | 2018-07-11 12:21 | PRG ---
Patient Name: MAKSIM PRESSLEY Date of service: 07/11/2018 Subjective: Patient was seen and examined at bedside and overnight events noted. Patient denies any shortness of breath or chest pain or palpitation. No history of nausea or vomiting or diarrhea or fever or chills or cramps. Objective: General: This is an elderly white female in no apparent distress. Vital signs: Temperature 98.4, pulse 71, respiratory rate 16, blood pressure 138/46. HEENT: Atraumatic, normocephalic. Oral mucosa is moist. Neck: Supple. Cardiovascular: S1 S2 heard. Rate and rhythm regular. Respiratory: Clear to auscultation. Gastrointestinal: Abdomen is soft Musculoskeletal: No tenderness. No edema. Dermatologic: No skin rash. Neurologic: Alert and awake and oriented X3. No focal neurologic deficits. Moving all the extremit ies. Psychiatric: Mood and affect normal. LABORATORY DATA: Potassium is 3.2, BUN 14, creatinine 0.8, sodium is 131. ASSESSMENT AND PLAN: 1. Hyponatremia, most likely syndrome of inappropriate antidiuretic hormone secretion responding to Tolvaptan. We will give another dose. Continue fluid restriction. 2. Hypomagnesemia. 3. Anemia. 4. Edema, controlled. 5. Anemia, stable. Plan to continue the Tolvaptan and monitor sodium closely. I will follow.
[2018-07-11] MEDS ORDERED: Tolvaptan 15 MG TAB PO ONE (13:00)
--- NOTE | 2018-07-11 14:32 | PDOC.PN ---
- Subjective Encounter Start Date: 07/11/18 Encounter Start Time: 11:15 -: old records requested/rev Pt seen and examined, chart reviewed in its entirety, this is my first visit with this patient follow up for: acute arterial occlusion S/P PTCA and PCI, DVT RLE, alpha strep UTI, met encephalopathy, physical deconditioning Son at bedside, didnt sleep well overnight, plan to go to rehab. no overt bleeding except from skin sites where IVs were No F/C, no N/V/D/C, no CP or SOB All systems reviewed and neg x as per HPI - Objective Resuscitation Status: Resuscitation Status FULL:Full Resuscitation MAR Reviewed: Yes Vital Signs & Weight: Vital Signs (12 hours) Temp Pulse Resp BP BP Pulse Ox 07/11/18 11:24 98.4 F 71 16 138/46 L 96 07/11/18 07:42 98.3 F 71 16 165/92 H 97 07/11/18 07:24 76 160/68 H Weight Weight 143 lb 4.8 oz I&O: 07/10/18 07/11/18 07/12/18 06:59 06:59 06:59 Intake Total 300 425 Balance 300 425 Result Diagrams: 07/13/18 04:42 07/13/18 04:42 Additional Labs: Accuchecks 07/11/18 07/11/18 07/10/18 11:28 03:55 20:10 POC Glucose 173 H 182 H 275 H 07/10/18 07/10/18 16:02 04:22 POC Glucose 241 H 79 Radiology Reviewed by me: Yes EKG Reviewed by me: Yes Phys Exam - Physical Examination Constitutional: NAD HEENT: PERRLA, moist MMs, sclera anicteric, oral pharynx no lesions Neck: no nodes, no JVD, supple, full ROM Respiratory: no wheezing, no rales, no rhonchi, clear to auscultation bilateral Cardiovascular: RRR, no significant murmur, no rub Gastrointestinal: soft, non-tender, no distention, positive bowel sounds Musculoskeletal: no edema Neurological: non-focal, normal sensation, moves all 4 limbs Lymphatic: no nodes Psychiatric: normal affect, A&O x 3 Skin: no rash, normal turgor, cap refill <2 seconds Deviation from normal: diskiness to left hallux almost resolved Dx/Plan (1) Acute occlusion of artery of lower extremity Code(s): I74.3 - EMBOLISM AND THROMBOSIS OF ARTERIES OF THE LOWER EXTREMITIES Status: Acute (2) Deep vein thrombosis (DVT) of right lower extremity Code(s): I82.401 - ACUTE EMBOLISM AND THOMBOS UNSP DEEP VEINS OF R LOW EXTREM Status: Acute Qualifiers: Affected thrombotic vein of extremity: unspecified lower extremity distal vein Chronicity: acute Qualified Code(s): I82.4Z1 - Acute embolism and thrombosis of unspecified deep veins of right distal lower extremity (3) Metabolic encephalopathy Code(s): G93.41 - METABOLIC ENCEPHALOPATHY Status: Resolved (4) Physical deconditioning Code(s): R53.81 - OTHER MALAISE Status: Acute (5) Acute blood loss anemia Code(s): D62 - ACUTE POSTHEMORRHAGIC ANEMIA Status: Acute (6) Current use of intermediate project manager anticoagulation Code(s): Z79.01 - SPORTS ADMINISTRATOR (CURRENT) USE OF ANTICOAGULANTS Status: Acute (7) Hyponatremia Code(s): E87.1 - HYPO-OSMOLALITY AND HYPONATREMIA Status: Acute (8) Urinary tract infection Status: Acute Qualifiers: Urinary tract infection type: acute cystitis Hematuria presence: without hematuria Qualified Code(s): N30.00 - Acute cystitis without hematuria Comment: alpha strep on culture, repeat UA negative - Plan cont current plan of care, plan discussed w/ family, continue antibiotics, PT/OT , transition social worker, out of bed/ambulate Acute arterial occlusion s/p angioplasty * ..LEFT LEG DVT- ABOVE * LEFT LEG ARTERIAL OCCLUSION,SUBACUTE- ABOVE 1. Toxic metabolic encephalopathy, multifactorial. -Resolving 2. Hypotonic hyponatremia. multifactorial - improved after Samsca.MONITOR 3. Sepsis secondary to urinary tract infection.-ON APPROPRIATE ANTIBIOTICS 4. Hypomagnesemia.-RESOLVED 5. Mild protein calorie malnutrition. 6. Hypothyroidism.-CONTINUE HOME MEDS 7. Coronary artery disease on aspirin and Plavix. 8. Essential tremors, followed by Dr. Villalta. 9. Diabetes mellitus type 2. 10. History of seizures. 11. Hypertension. 12. Hyperlipidemia. 13. Chronic pain syndrome. 14. Gastroesophageal reflux disease. 15. Urinary incontinence. PLAN- CONT LOVENOX BID FOR NOW. CHANGE TO PO ON DC SODIUM IMPROVING WITH STRICT FLUID RESTRICTION. CHECK IN AM MENTATION IMPROVING.MONITOR.LIKELY DUE TO LOW SODIUM WALKED IN HALLWAYS W PT. REHAB WHEN READY FOR DC S/P ANGIOPLASTY THIS ADMISSION FOR ACUTE LEG ISCHEMIA. STILL W SIGNIFICANT RESIDUAL ARTERIAL DISEASE. ON PLAVIX.ASA STOPPED YESTERDAY DUE TO IV SITE BLEEDING AM LABS WBC HIGH LIKELY DUE TO IMFALMMATION & STRESS. RECHECK. REPEAT CX NEGATIVE SO FAR. NO CLINICAL EVIDENCE OF SEPSIS
[2018-07-11] MEDS ORDERED: traMADol HCl 50 MG TAB PO PRN ×2 (18:21)
[2018-07-11] MEDS: Insulin Regular 300 UNITS/3 ML VIAL SC PRN (18:41)
[2018-07-11] MEDS: Gabapentin 300 MG CAP PO SCH (21:53)
[2018-07-12 05:18] LABS: Anion Gap 10 mmol/L (10-20); BUN (Urea Nitrogen) 12 mg/dL (9.8-20.1); Calc. Creatinine Clearance 65 mL/min (70-130); Calcium 8.9 mg/dL (7.8-10.44); Carbon Dioxide 23 mmol/L (23-31); Chloride 109 mmol/L (98-107); Estimated GFR-MDRD 78; Potassium 4.4 mmol/L (3.5-5.1); Sodium 138 mmol/L (136-145)
[2018-07-12 05:20] LABS: Glucose 49 mg/dL (83-110)
[2018-07-12] MEDS: Levothyroxine Sodium 125 MCG TAB PO SCH (06:18)
[2018-07-12 07:52] LABS: #Basophils 0.1 thou/uL (0.0-0.2); #Eosinphils 0.7 thou/uL (0.0-0.7); #Lymphocytes 2.6 thou/uL (1.20-3.40); #Monocytes 1.4 thou/uL (0.11-0.59); #Neutrophils 12.4 thou/uL (1.40-6.50); %Basophils 0.5 % (0.0-1.0); %Eosinophils 4.3 % (0.0-10.0); %Lymphocytes 15.2 % (21.0-51.0); %Monocytes 8.3 % (0.0-10.0); %Neutrophils 71.8 % (42.0-75.0); Hemoglobin 8.7 g/dL (12.0-16.0); Mean Corpuscular HGB CONC 31.2 g/dL (32.0-36.0); Mean Corpuscular Hemoglobin 27.3 pg (27.0-31.0); Mean Corpuscular Volume 87.5 fL (78.0-98.0); Mean Platelet Volume 6.2 fL (7.4-10.4); Platelet Count 577 thou/uL (130-400); RBC Distribution Width 13.2 % (11.5-14.5); Red Blood Cell (RBC) Count 3.19 mill/uL (4.20-5.40); White Blood Cell (WBC) Count 17.3 thou/uL (4.8-10.8)
[2018-07-12] MEDS: Enoxaparin Sodium 60 MG/0.6 ML SYRINGE SC SCH (09:54)
[2018-07-12] MEDS: Insulin Glargine 35 UNITS in Pre-Filled Syringe 1 EACH SC SCH (09:55)
[2018-07-12] MEDS: Clopidogrel Bisulfate 75 MG TAB PO SCH (09:56)
[2018-07-12] MEDS: Amlodipine 10 MG TAB PO SCH ×2 (09:56→21:59)
[2018-07-12] MEDS: Phenazopyridine HCl 97.5 MG TABLET PO SCH ×3 (09:56→18:23)
[2018-07-12] MEDS: Acetaminophen 325 MG TAB PO SCH ×3 (09:56→21:59)
[2018-07-12] MEDS: Propranolol HCl 20 MG TAB PO SCH ×3 (09:56→22:00)
[2018-07-12] MEDS: Atorvastatin Calcium 40 MG TAB PO SCH (09:57)
[2018-07-12] MEDS: Tobramycin/Dexamethasone Ophth Oint 3.5 GM TUBE EA EYE SCH (09:59)
[2018-07-12] MEDS: Fluticasone Propionate Nasal Spray 16 gm Bottle NASAL SCH ×2 (09:59→22:00)
[2018-07-12] MEDS ORDERED: Rivaroxaban 15 MG TAB PO SCH (10:00)
[2018-07-12] MEDS: Famotidine 20 MG TAB PO SCH ×2 (10:07→22:00)
--- NOTE | 2018-07-12 13:54 | PDOC.PN ---
- Subjective Encounter Start Date: 07/12/18 Encounter Start Time: 09:40 follow up for: UTI, acute arterial occlusion post PTCA and PCI, DVT, metabolic encephalopathy Pt not eating well, no acute overnight events except hypoglycemia and confusion this AM No F/C, no N/V/D/C, no CP or SOB All systems reviewed and neg x as per HPI - Objective Resuscitation Status: Resuscitation Status FULL:Full Resuscitation MAR Reviewed: Yes Vital Signs & Weight: Vital Signs (12 hours) Temp Pulse Resp BP BP Pulse Ox 07/12/18 11:34 97.9 F 77 19 174/66 H 96 07/12/18 09:56 77 160/61 H 07/12/18 08:00 96 07/12/18 07:11 97.7 F 77 19 160/61 H 96 Weight Admit Weight 143 lb 4.8 oz Weight 143 lb 4.8 oz I&O: 07/11/18 07/12/18 07/13/18 06:59 06:59 06:59 Intake Total 425 750 Balance 425 750 Result Diagrams: 07/13/18 04:42 07/13/18 04:42 Additional Labs: Accuchecks 07/12/18 07/12/18 07/11/18 11:34 04:44 19:13 POC Glucose 170 H 64 L 218 H 07/11/18 16:29 POC Glucose 195 H Phys Exam - Physical Examination Constitutional: NAD HEENT: PERRLA, moist MMs, sclera anicteric, TM's clear, oral pharynx no lesions Neck: no nodes, no JVD, supple, full ROM Respiratory: no wheezing, no rales, no rhonchi, clear to auscultation bilateral Cardiovascular: RRR, no significant murmur, no rub Gastrointestinal: soft, non-tender, no distention, positive bowel sounds Musculoskeletal: edema present Neurological: non-focal, normal sensation, moves all 4 limbs Lymphatic: no nodes Deviation from normal: sedate, was hypoglycemic, arousable and eating, but not as bright as usual Skin: no rash, normal turgor, cap refill <2 seconds Dx/Plan - Plan cont current plan of care, plan discussed w/ family * . Acute arterial occlusion s/p angioplasty * ..LEFT LEG DVT- ABOVE * LEFT LEG ARTERIAL OCCLUSION,SUBACUTE- ABOVE 1. Toxic metabolic encephalopathy, multifactorial. -Resolving 2. Hypotonic hyponatremia. multifactorial - improved after Samsca.MONITOR 3. Sepsis secondary to urinary tract infection.-ON APPROPRIATE ANTIBIOTICS completed 4. Hypomagnesemia.-RESOLVED 5. Mild protein calorie malnutrition. 6. Hypothyroidism.-CONTINUE HOME MEDS 7. Coronary artery disease on aspirin and Plavix. 8. Essential tremors, followed by Dr. Villalta. 9. Diabetes mellitus type 2. 10. History of seizures. 11. Hypertension. 12. Hyperlipidemia. 13. Chronic pain syndrome. 14. Gastroesophageal reflux disease. 15. Urinary incontinence. PLAN- start po eliquis, home tomorrrow is MS better SODIUM IMPROVING WITH STRICT FLUID RESTRICTION. CHECK IN AM MENTATION IMPROVING.MONITOR.LIKELY DUE TO LOW SODIUM WALKED IN HALLWAYS W PT. REHAB WHEN READY FOR DC S/P ANGIOPLASTY THIS ADMISSION FOR ACUTE LEG ISCHEMIA. STILL W SIGNIFICANT RESIDUAL ARTERIAL DISEASE. WBC HIGH LIKELY DUE TO IMFALMMATION & STRESS. RECHECK. REPEAT CX NEGATIVE SO FAR. NO CLINICAL EVIDENCE OF SEPSIS
--- NOTE | 2018-07-12 17:47 | PRG ---
DATE OF SERVICE: 07/12/2018 SUBJECTIVE: Patient was seen and examined at bedside and overnight events noted. Patient denies any shortness of breath or chest pain or palpitation. No history of nausea or vomiting or diarrhea or f ever or chills or cramps. OBJECTIVE: GENERAL: This is a well-built female in no apparent distress. VITAL SIGNS: Temperature 97.9, pulse 77, respiratory rate 20, blood pressure 148/60. HEENT: Atraumatic, normocephalic. Oral mucosa is moist. NECK: Supple. CARDIOVASCULAR: S1, S2 heard. Rate and rhythm regular. RESPIRATORY: Clear to auscultation. GASTROINTESTINAL: Abdomen is soft. MUSCULOSKELETAL: No tenderness. No edema. DERMATOLOGIC: No skin rash. NEUROLOGIC: Alert and awake and oriented x3. No focal neurologic deficits. Moving all the extremiti es. PSYCHIATRIC: Mood and affect normal. LABORATORY DATA: Sodium is 138, creatinine 0.7. ASSESSMENT AND PLAN: 1. Hyponatremia, better with Tolvaptan. Limit fluid intake to 1-1.2 liters. 2. Hypomagnesemia, replace. 3. Anemia. 4. Edema, stable. 5. Hypertension, better. Titrate medication. 6. We will continue to monitor sodium level and limit fluid intake.
[2018-07-12] MEDS: Insulin Regular 300 UNITS/3 ML VIAL SC PRN (18:23)
[2018-07-12] MEDS: Gabapentin 300 MG CAP PO SCH (21:59)
[2018-07-12] MEDS: Rivaroxaban 15 MG TAB PO SCH (22:01)
[2018-07-13 05:35] LABS: #Basophils 0.1 thou/uL (0.0-0.2); #Eosinphils 0.6 thou/uL (0.0-0.7); #Lymphocytes 2.6 thou/uL (1.20-3.40); #Monocytes 1.3 thou/uL (0.11-0.59); #Neutrophils 14.1 thou/uL (1.40-6.50); %Basophils 0.4 % (0.0-1.0); %Eosinophils 3.4 % (0.0-10.0); %Lymphocytes 13.7 % (21.0-51.0); %Monocytes 7.1 % (0.0-10.0); %Neutrophils 75.5 % (42.0-75.0); Hemoglobin 8.4 g/dL (12.0-16.0); Mean Corpuscular HGB CONC 31.4 g/dL (32.0-36.0); Mean Corpuscular Hemoglobin 27.5 pg (27.0-31.0); Mean Corpuscular Volume 87.5 fL (78.0-98.0); Mean Platelet Volume 6.4 fL (7.4-10.4); Platelet Count 547 thou/uL (130-400); RBC Distribution Width 13.5 % (11.5-14.5); Red Blood Cell (RBC) Count 3.07 mill/uL (4.20-5.40); White Blood Cell (WBC) Count 18.6 thou/uL (4.8-10.8)
[2018-07-13 05:38] LABS: Anion Gap 11 mmol/L (10-20); BUN (Urea Nitrogen) 10 mg/dL (9.8-20.1); Calc. Creatinine Clearance 61 mL/min (70-130); Calcium 8.6 mg/dL (7.8-10.44); Carbon Dioxide 21 mmol/L (23-31); Chloride 102 mmol/L (98-107); Estimated GFR-MDRD 72; Glucose 207 mg/dL (83-110); Magnesium 1.5 mg/dL (1.6-2.6); Potassium 4.4 mmol/L (3.5-5.1); Sodium 130 mmol/L (136-145)
[2018-07-13] MEDS: Levothyroxine Sodium 125 MCG TAB PO SCH (06:21)
[2018-07-13] MEDS: Fluticasone Propionate Nasal Spray 16 gm Bottle NASAL SCH (08:54)
[2018-07-13] MEDS: Amlodipine 10 MG TAB PO SCH (08:55)
[2018-07-13] MEDS: Acetaminophen 325 MG TAB PO SCH ×2 (08:55→15:56)
[2018-07-13] MEDS: Clopidogrel Bisulfate 75 MG TAB PO SCH (08:55)
[2018-07-13] MEDS: Atorvastatin Calcium 40 MG TAB PO SCH (08:55)
[2018-07-13] MEDS: Propranolol HCl 20 MG TAB PO SCH ×2 (08:55→15:56)
[2018-07-13] MEDS: Famotidine 20 MG TAB PO SCH (08:56)
[2018-07-13] MEDS: Phenazopyridine HCl 97.5 MG TABLET PO SCH ×2 (08:58→12:42)
[2018-07-13] MEDS: Insulin Glargine 35 UNITS in Pre-Filled Syringe 1 EACH SC SCH (08:58)
[2018-07-13] MEDS: Rivaroxaban 15 MG TAB PO SCH (08:58)
[2018-07-13] MEDS: Insulin Regular 300 UNITS/3 ML VIAL SC PRN ×2 (12:42→15:56)
[2018-07-13 16:35] VITALS: BP 156/76; TEMP 98.7
--- NOTE | 2018-07-14 00:45 | PRG ---
DATE OF SERVICE: 07/13/2018 SUBJECTIVE: Patient was seen and examined at bedside and overnight events noted. Patient denies any shortness of breath or chest pain or palpitation. No history of nausea or vomiting or diarrhea or f ever or chills or cramps. OBJECTIVE: GENERAL: This is an elderly female in no apparent distress. VITAL SIGNS: Temperature 97, pulse 68, respiratory rate 18, blood pressure 156/76. HEENT: Atraumatic, normocephalic, oral mucosa is moist. NECK: Supple. CARDIOVASCULAR: S1, S2 heard. Rate and rhythm regular. RESPIRATORY: Clear to auscultation. GASTROINTESTINAL: Abdomen is soft. MUSCULOSKELETAL: No tenderness, no edema. DERMATOLOGIC: No skin rash. NEUROLOGIC: Alert and awake and oriented x3. No focal neurologic deficits. Moving all the extremit ies. PSYCHIATRIC: Mood and affect normal. LABORATORY DATA: Potassium is 4.4, BUN is 10, creatinine 0.7. ASSESSMENT AND PLAN: 1. Hyponatremia, better. Continue fluid restriction at 1 liter per day. 2. Hypomagnesemia. 3. Anemia. 4. Edema. 5. Hypertension, stable. 6. Recommend continue fluid restriction and monitor sodium.
== END 2018-07-13 17:00 | DRG 853 ==
LOC: ERS 23:55 → T4-A 07-01 03:06
PROVIDERS: ADMIT Internal Medicine; ATTEND Internal Medicine
PROC: 04CL0ZZ Extirpation of Matter from Left Femoral Artery, Open Approach (ICD-10-PCS; principal; 2018-07-04)
PROC: 04UL0KZ Supplement Left Femoral Artery with Nonautologous Tissue Substitute, Open Approach (ICD-10-PCS; 2018-07-04)
DX: A41.9 Sepsis, unspecified organism (principal); G92 Toxic encephalopathy; N39.0 Urinary tract infection, site not specified; E44.1 Mild protein-calorie malnutrition; I82.412 Acute embolism and thrombosis of left femoral vein; E22.2 Syndrome of inappropriate secretion of antidiuretic hormone; I70.292 Other atherosclerosis of native arteries of extremities, left leg; I25.10 Atherosclerotic heart disease of native coronary artery without angina pectoris; G89.4 Chronic pain syndrome; E11.22 Type 2 diabetes mellitus with diabetic chronic kidney disease; I12.9 Hypertensive chronic kidney disease with stage 1 through stage 4 chronic kidney disease, or unspecified chronic kidney disease; N18.2 Chronic kidney disease, stage 2 (mild); D63.1 Anemia in chronic kidney disease; E11.51 Type 2 diabetes mellitus with diabetic peripheral angiopathy without gangrene; Z95.820 Peripheral vascular angioplasty status with implants and grafts; B95.5 Unspecified streptococcus as the cause of diseases classified elsewhere; I72.8 Aneurysm of other specified arteries; E86.0 Dehydration; E83.42 Hypomagnesemia; F03.90 Unspecified dementia, unspecified severity, without behavioral disturbance, psychotic disturbance, mood disturbance, and anxiety; E87.8 Other disorders of electrolyte and fluid balance, not elsewhere classified; K21.9 Gastro-esophageal reflux disease without esophagitis; E78.5 Hyperlipidemia, unspecified; G40.909 Epilepsy, unspecified, not intractable, without status epilepticus; R32 Unspecified urinary incontinence; E03.9 Hypothyroidism, unspecified; G25.0 Essential tremor; Z68.25 Body mass index [BMI] 25.0-25.9, adult; Z79.4 Long term (current) use of insulin; Z79.02 Long term (current) use of antithrombotics/antiplatelets; Z79.82 Long term (current) use of aspirin
CPT/HCPCS: 36415; 36416; 51701; 70450; 71045; 72170; 75635; 76770; 80048; 80053; 81003; 81015; 82533; 82550; 82553; 83605; 83735; 83930; 83935; 84100; 84443; 84484; 85014; 85018; 85025; 85049; 85730; 86850; 86900; 86901; 87040; 87070; 87086; 87205; 93005; 93923; 96361; 96365; A4353; G8978-GP-CL; G8978-GP-CM; G8979-GP-CI; G8979-GP-CL; G8987-GO-CK; G8988-GO-CJ; G9168-GN-CM; G9169-GN-CJ; J0696; J1642; J1644; J1650; J1815; J2001; J2250; J2405; J2704; J2720; J3010; J3475; J7050